=== PATIENT | female | born 1965 | race Caucasian/White ===

== ENCOUNTER → 2018-01-17 16:17 | Outpatient (CLI) | payer OTHER, SELFPAY ==
[2018-01-17 16:56] LABS: Add Manual Diff / Slide Review NO; Basophils Percent Auto 0.7 % (0-2); Hematocrit 38.7 % (36-46); Mean Corpuscular HGB Conc 33.5 % (30-36); Mean Corpuscular Hemoglobin 30.6 PG (26-34); Mean Corpuscular Volume 91.4 fL (80-100); Monocytes Percent Auto 7.2 % (3-14); Neutrophils Absolute Auto 3400 /uL (3000-5900); Neutrophils Percent Auto 50.1 % (50-75); Platelet Count 277 X10^3/uL (150-400); Red Blood Cell Count 4.24 X10^6/uL (4.0-5.2); Red Cell Distribution Width 14.3 % (11.6-14.8); White Blood Cell Count 6.8 X10^3/uL (4.5-11.0)
[2018-01-17 17:02] LABS: Alanine Aminotransferase 35 IU/L (9-52); Albumin 4.4 g/dL (3.5-5.0); Albumin Globulin Ratio 1.4 (1.0-2.8); Alkaline Phosphatase 97 U/L (38-126); Aspartate Aminotransferase 37 IU/L (14-36); Bilirubin Total 0.4 mg/dL (0.2-1.3); Blood Urea Nitrogen 12 mg/dL (7-17); Calcium 9.8 mg/dL (8.4-10.2); Carbon Dioxide 32 mmol/L (22-32); Chloride 101 mmol/L (98-107); Cholesterol 164 mg/dL (140-199); Estimated Glomerular Filt Rate > 60.0 mL/min (>60); Globulin 3.1 g/dL (1.7-4.1); Glucose 114 mg/dL (70-100); HDL Cholesterol 73 mg/dL (40-60); HEMOLYSIS < 15 (0-50); LDL Cholesterol Calculated 76 mg/dL (<100); Potassium 4.4 mmol/L (3.4-5.1); Sodium 144 mmol/L (137-145); Total Protein 7.5 g/dL (6.3-8.2); Triglycerides 75 mg/dL (35-150)
--- NOTE | 2018-01-17 17:47 | DI.RAD.S_ITS ---
PROCEDURE: XR CHEST 2V INDICATIONS: 52 year-old female with shortness of breath since pneumonia in November. TECHNIQUE: 2 views of the chest were acquired. COMPARISON: [facility], , CHEST 2 VIEW, 12/13/2017, 16:13. [facility], CR, CHEST 2 VIEW, 12/01/2017, 16:59. [facility], CR, XR CHEST 2 VIEWS, 11/26/2017, 16:10. FINDINGS: Surgical changes and devices: Cholecystectomy clips are again noted, as well as epigastric abdominal surgical clips. Lungs and pleura: No pleural effusions or pneumothorax. Lungs are clear. Mediastinum: Mediastinal contours are normal. Heart size is normal. Bones and chest wall: No suspicious bony abnormalities. Soft tissues appear unremarkable. IMPRESSION: No acute cardiopulmonary disease. Dictated by: Hong Ortega M.D. on 01/18/2018 at 8:21 Approved by: Hong Ortega M.D. on 01/18/2018 at 8:22
[2018-01-17 17:54] LABS: Hemoglobin A1C% w Est Avg Glu 6.1 % (4.0-6.0)
[2018-01-17 19:11] LABS: Creatinine Urine Random 29.7 mg/dL
[2018-01-17 19:19] LABS: Microalbumi Creatinin Ratio Ur 20.2 ug/mg CR (<30); Microalbumin Urine Random < 0.6 mg/dL (0-1.6)
== END ==
PROVIDERS: Family Provider Family Medicine; PCP Family Medicine; Visit Provider Nurse Practitioner Family
DX: E78.2 Mixed hyperlipidemia (principal); R06.02 Shortness of breath; J45.909 Unspecified asthma, uncomplicated
CPT/HCPCS: 36415; 71046; 80053; 80061; 82043; 82570; 83036; 85025

== ENCOUNTER → 2018-02-01 13:37 | Outpatient (CLI) | payer OTHER, SELFPAY ==
--- NOTE | 2018-02-06 09:19 | PM.PFT.1 ---
Pulmonary Function Test Referral & Results Date Patient Seen: 02/01/18 Requesting provider: Morales Delvalle Indication: Shortness of breath Results: The spirometry demonstrates an FVC of 2.79 L which is 80% of predicted. The FEV1 was measured at 2.43 L which is 89% of predicted. The FEV1/FVC ratio was 87 which is 110% of predicted. Following the administration of bronchodilator there was no appreciable change. Lung volumes show an SVC of 2.80 L which is 87% of predicted. The diffusing capacity was measured at 30.95 which is 127% of predicted. The maximum voluntary ventilation was reduced slightly. Interpretation: This study demonstrates probably normal pulmonary function. There was a slight reduction FEV1 but shape of flow volume loop would argue against being any active obstructive lung disease. I would interpret this as normal pulmonary function.
== END ==
PROVIDERS: Family Provider Family Medicine; PCP Family Medicine; Visit Provider Family Medicine
DX: R06.02 Shortness of breath (principal)
CPT/HCPCS: 94010; 94060; 94726; 94729

== ENCOUNTER → 2018-04-25 14:43 | Outpatient (CLI) | payer OTHER, SELFPAY ==
--- NOTE | 2018-04-25 | DI.MG.S_ITS ---
BILATERAL DIGITAL DIAGNOSTIC MAMMOGRAM 3D/2D: 04/25/2018 CLINICAL: Bilateral breast masses. Comparison is made to exams dated: 08/23/2016 mammogram, 12/09/2010 mammogram, and 05/22/2003 mammogram - [facility]. There are scattered fibroglandular elements in both breasts. There are scattered fine coarse dystrophic punctate calcifications in the right breast central to the nipple anterior depth. This correlates with surgery. There is architectural distortion and a post surgical scar associated with the calcifications. There also is a benign oval fat containing fat necrosis with an indistinct margin and dystrophic punctate calcifications in the right breast at 6 o'clock middle depth. This correlates as palpated. There is a post surgical scar associated with the fat necrosis. There are clustered fine calcifications in the left breast anterior depth inferior region seen on the mediolateral oblique view only. There also is irregular architectural distortion with an indistinct margin and scattered fine punctate calcifications in the left breast at 6 o'clock middle depth. No other significant masses or calcifications are seen in either breast. IMPRESSION: INCOMPLETE: NEEDS ADDITIONAL IMAGING EVALUATION The scattered fine coarse dystrophic punctate calcifications in the right breast central to the nipple anterior depth are consistent with fat necrosis and are benign. The clustered fine calcifications in the left breast anterior depth inferior region seen on the mediolateral oblique view only likely represent fat necrosis and are probably benign. The irregular architectural distortion in the left breast at 6 o'clock middle depth is consistent with fat necrosis or a previous surgery and is benign. This exam was interpreted at Station ID: [id number]. NOTE: For mammograms, a report in lay terms will be sent to the patient. Approximately 15% of breast malignancies will not be visualized mammographically. In the management of a palpable breast mass, a negative mammogram must not discourage biopsy of a clinically suspicious lesion. Electronically Signed By: Danny joe/juan:04/25/2018 16:21:28 letter sent: Need Ultrasound ACR BI-RADS Category 0: Incomplete 3340F
--- NOTE | 2018-04-25 | DI.US.S_ITS ---
ULTRASOUND OF RIGHT BREAST: 04/25/2018 CLINICAL: Patient returns for additional imaging over a suspected mass in the right breast. Comparison is made to exams dated: 04/25/2018 mammogram - [facility] and 08/23/2016 mammogram - [facility]. Color flow and real-time ultrasound of the right breast were performed on the areas of interest. There is a 1.1 cm x 0.6 cm x 0.8 cm oval mass with an indistinct margin in the right breast at 6 o'clock in the retroareolar region. This oval mass is hypoechoic. This correlates as palpated. Color flow imaging demonstrates that there is no vascularity present. There also is a 0.6 cm x 0.5 cm x 0.5 cm round mass with a circumscribed margin in the right breast at 5 o'clock posterior depth. This round mass is hypoechoic with internal echoes. This correlates as palpated. Color flow imaging demonstrates that there is no vascularity present. Additionally, there is a 0.9 cm x 0.5 cm x 0.9 cm oval mass with a circumscribed margin in the right breast at 6 o'clock posterior depth. This oval mass is hypoechoic with internal echoes. This correlates with mammography findings. Color flow imaging demonstrates that there is no vascularity present. IMPRESSION: PROBABLY BENIGN - FOLLOW-UP RECOMMENDED The 1.1 cm x 0.6 cm x 0.8 cm oval mass in the right breast at 6 o'clock in the retroareolar region likely represents fat necrosis and is probably benign. A follow-up ultrasound in 6 months is recommended. The 0.6 cm x 0.5 cm x 0.5 cm round mass in the right breast at 5 o'clock posterior depth likely represents fat necrosis and is probably benign. A follow-up ultrasound in 6 months is recommended. The 0.9 cm x 0.5 cm x 0.9 cm oval mass in the right breast at 6 o'clock posterior depth is probably benign. A follow-up ultrasound in 6 months is recommended. There is no abnormality seen in the right breast to correspond with the palpable abnormality at 2 o'clock, however, clinical followup is recommended. A follow-up mammogram and an ultrasound in 6 months is recommended to demonstrate stability. This exam was interpreted at Station ID: [id number]. Electronically Signed By: Danny joe/juan:04/25/2018 18:25:02 letter sent: Followup Recommended Ultrasound BI-RADS: 3 Probably benign
--- NOTE | 2018-04-25 14:09 | DI.US.S_ITS ---
ULTRASOUND OF LEFT BREAST: 04/25/2018 CLINICAL: Palpable left breast lump. Comparison is made to exams dated: 04/25/2018 mammogram - [facility], 08/23/2016 mammogram, and 12/09/2010 mammogram - [facility]. Real-time ultrasound of the left breast was performed on the area of interest. IMPRESSION: NEGATIVE There is no sonographic evidence of malignancy. There is no abnormality seen in the left breast to correspond with the palpable abnormality at 6 o'clock, however, clinical followup is recommended. A 1 year screening mammogram is recommended. Electronically Signed By: Danny joe/juan:04/30/2018 11:30:35 letter sent: Clinical Evaluation Ultrasound BI-RADS: 1 Negative
== END ==
PROVIDERS: PCP Family Medicine; Visit Provider Family Medicine
DX: R92.8 Other abnormal and inconclusive findings on diagnostic imaging of breast (principal); N64.1 Fat necrosis of breast; N63.14 Unspecified lump in the right breast, lower inner quadrant; N63.10 Unspecified lump in the right breast, unspecified quadrant
CPT/HCPCS: 76642; 77066; G0279

== ENCOUNTER → 2018-09-18 15:28 | Outpatient (CLI) | payer OTHER, SELFPAY ==
--- NOTE | 2018-09-18 15:30 | DI.MRI.S_ITS ---
PROCEDURE: MR HEAD/BRAIN WO CON INDICATIONS: mem imp TECHNIQUE: Noncontrast axial T1 spin echo, axial T2 fast spin echo, sagittal and axial FLAIR, coronal T2 fast spin echo, axial gradient echo, axial diffusion and ADC through the brain. COMPARISON: None. FINDINGS: Image quality: Excellent. CSF Spaces: Basal cisterns are patent. There is a trivial arachnoid cyst seen involving the anterior left middle cranial fossa, as on series 8 image 9. Ventricles are normal in size and shape. Brain: No intracranial masses or hemorrhage. Mxa/white matter interface is normal. Brainstem appears normal. Diffusion-weighted images demonstrate no acute ischemic insult. No chronic ischemic insults. Normal intravascular flow voids are present. Skull and face: Calvarium has normal marrow signal. Orbits appear normal. Note is made of bilateral lens replacements. Sinuses: Sinuses and mastoids are clear. IMPRESSION: No significant abnormality is seen. Dictated by: Moises Jarquin M.D. on 09/18/2018 at 15:56 Approved by: Moises Jarquin M.D. on 09/18/2018 at 15:57
== END ==
PROVIDERS: PCP Family Medicine; Visit Provider Family Medicine
DX: R41.3 Other amnesia (principal)
CPT/HCPCS: 70551

== ENCOUNTER → 2019-02-05 15:06 | Outpatient (CLI) | payer OTHER, SELFPAY | PROVIDERS: PCP Family Medicine; Visit Provider Physician Assistant | DX: N39.0 Urinary tract infection, site not specified (principal) | CPT/HCPCS: 87077; 87086; 87186 ==

== ENCOUNTER → 2019-02-17 10:24 | Outpatient (CLI) | payer OTHER, SELFPAY ==
--- NOTE | 2019-02-17 10:26 | DI.US.S_ITS ---
PROCEDURE: US PELVIC COMPLETE INDICATIONS: PELVIC PAIN TECHNIQUE: Real-time scanning was performed of the pelvic organs, with image documentation. Additional endovaginal scanning was necessary due to incomplete visualization of the adnexal and endometrial structures by transabdominal scanning. COMPARISON: None. FINDINGS: Transabdominal scanning: Limited scanning through the kidneys shows no hydronephrosis. No pathologic free abdominal or pelvic fluid. Endovaginal scanning: Uterus: Uterus has been removed. Vaginal cuff is within normal limits. Ovaries: Left ovary is not visualized. Adnexal regions are unremarkable. Right ovary measures 32 x 18 x 32 mm. It is unremarkable. IMPRESSION: Unremarkable exam. Dictated by: Radha Freedman M.D. on 02/17/2019 at 13:36 Approved by: Radha Freedman M.D. on 02/17/2019 at 13:38
== END ==
PROVIDERS: PCP Family Medicine; Visit Provider Family Medicine
DX: R10.2 Pelvic and perineal pain (principal); Z78.0 Asymptomatic menopausal state
CPT/HCPCS: 36415; 76830; 76856; 83001

== ENCOUNTER → 2019-02-17 13:00 | Outpatient (CLI) | payer OTHER, SELFPAY | PROVIDERS: Family Provider Family Medicine; PCP Family Medicine | DX: Z78.0 Asymptomatic menopausal state (principal) | CPT/HCPCS: 36415; 83001 ==

== ENCOUNTER → 2019-03-04 13:57 | Outpatient (CLI) | payer OTHER, SELFPAY ==
--- NOTE | 2019-03-04 13:58 | DI.US.S_ITS ---
ULTRASOUND OF RIGHT BREAST: 03/04/2019 CLINICAL: Patient returns today to evaluate densities in the right breast. Comparison is made to exams dated: 04/25/2018 ultrasound, 04/25/2018 mammogram [facility], 08/23/2016 mammogram, 12/09/2010 mammogram, 05/22/2003 mammogram, and 05/22/2003 [facility]. Color flow and real-time ultrasound of the right breast were performed. Max scale images of the real-time examination were reviewed. There is 0.3 cm x 0.6 cm x 0.4 cm oval mass with an indistinct margin in the right breast at 6 o'clock in the retroareolar region 3 cm from the nipple. This oval mass is hypoechoic. This abnormality is not significantly changed. Color flow imaging demonstrates that there is no vascularity present. There also is 0.4 cm x 0.3 cm x 0.5 cm round mass with a circumscribed margin in the right breast at 5 o'clock posterior depth 10 cm from the nipple. This round mass is hypoechoic with internal echoes. This abnormality is not significantly changed. Color flow imaging demonstrates that there is no vascularity present. Additionally, there is 0.8 cm x 0.4 cm x 0.9 cm oval mass with a circumscribed margin in the right breast at 6 o'clock posterior depth 10 cm from the nipple. This oval mass is hypoechoic with internal echoes. This abnormality is not significantly changed and correlates with mammography findings. Color flow imaging demonstrates that there is no vascularity present. IMPRESSION: PROBABLY BENIGN The 1.3 cm x 0.6 cm x 0.4 cm oval mass in the right breast at 6 o'clock in the retroareolar region likely represents fat necrosis and is probably benign. The 0.4 cm x 0.3 cm x 0.5 cm round mass in the right breast at 5 o'clock posterior depth likely represents fat necrosis and is probably benign. The 0.8 cm x 0.4 cm x 0.9 cm oval mass in the right breast at 6 o'clock posterior depth is probably benign. A follow-up ultrasound in 6 months is recommended. A follow-up bilateral mammogram and a right breast ultrasound in 12 months is recommended to document two years of stability. This exam was interpreted at Station ID: [id number]. Electronically Signed By: Cornel Gillis M.D. aty/:03/05/2019 06:13:04 letter sent: Followup Recommended Ultrasound BI-RADS: 3 Probably benign
--- NOTE | 2019-03-04 13:58 | DI.MG.S_ITS ---
BILATERAL DIGITAL DIAGNOSTIC MAMMOGRAM 3D/2D SHORT-TERM FOLLOW-UP: 03/04/2019 CLINICAL: Short term follow up for bilateral breasts. Comparison is made to exams dated: 04/25/2018 ultrasound, 04/25/2018 ultrasound, and 04/25/2018 mammogram - [facility]. There are scattered fibroglandular elements in both breasts. There is a benign oval fat containing fat necrosis with dystrophic calcifications in the right breast at 6 o'clock middle depth. This is not significantly changed. There is a post-surgical scar associated with the fat necrosis. There are a grouped coarse calcifications in the left breast anterior depth inferior region seen on the mediolateral oblique view only. These are not significantly changed. No other significant masses or calcifications are seen in either breast. IMPRESSION: INCOMPLETE: NEEDS ADDITIONAL IMAGING EVALUATION The grouped coarse calcifications in the left breast anterior depth inferior region seen on the mediolateral oblique view only likely represent fat necrosis and are probably benign. Further evaluation of previously imaged probably benign masses in the right breast by sonogram is recommended and will be scheduled to immediately follow this exam. This exam was interpreted at Station ID: [id number]. NOTE: For mammograms, a report in lay terms will be sent to the patient. Approximately 15% of breast malignancies will not be visualized mammographically. In the management of a palpable breast mass, a negative mammogram must not discourage biopsy of a clinically suspicious lesion. Electronically Signed By: Cornel Gillis M.D. aty/:03/04/2019 15:48:55 ACR BI-RADS Category 0: Incomplete 3340F
== END ==
PROVIDERS: Family Provider Family Medicine; PCP Family Medicine; Visit Provider Family Medicine
DX: R92.8 Other abnormal and inconclusive findings on diagnostic imaging of breast (principal); R92.1 Mammographic calcification found on diagnostic imaging of breast; N63.10 Unspecified lump in the right breast, unspecified quadrant
CPT/HCPCS: 76642; 77066; G0279

== ENCOUNTER → 2019-04-08 13:02 | Outpatient (CLI) | payer OTHER, SELFPAY ==
--- NOTE | 2019-04-08 13:04 | DI.MRI.S_ITS ---
PROCEDURE: MR ANKLE LT WO CON INDICATIONS: Pain IN LEFT ANKLE TECHNIQUE: Noncontrast sagittal T1 spin echo and T2 fast spin echo with fat saturation, axial proton density fast spin echo and T2 fast spin echo with fat saturation, coronal T1 spin echo and T2 fast spin echo with fat saturation through the ankle/hindfoot. COMPARISON: [facility], MR, MR FOOT LT WO CON, 04/08/2019, 13:46. FINDINGS: Image quality: Diagnostic. Bones and joints: No acute fracture, dislocation, or suspicious osseous lesion is identified involving the osseous structures of the midfoot or hindfoot. Moderate focal marrow edema is evident involving the calcaneus at the subtalar joint, which is felt to be related to a defect of the overlying hyaline articular cartilage. The ankle mortise is well-maintained. There are no osteochondral defects evident involving the tibial plafond to the talar dome. However, small defect of the hyaline articular cartilage along the anterior margin of the central tibial plateau is present with an area of minimal focal marrow edema identified. No osteochondral fragments are appreciated. No significant joint effusions are identified. There is a small Achilles spur. Medial structures: The deltoid and spring ligaments are intact. There is slight increased signal involving the talar attachment of the deltoid ligament. The tibialis posterior, flexor digitorum longus, and flexor hallucis longus tendons appear intact without significant tendinopathy. A small amount of fluid is contained within their corresponding tendon sheaths. The posterior tibial nerve through the region of the tarsal tunnel appears to be within normal limits. Lateral structures: The anterior and posterior distal tibiofibular ligaments are intact. The anterior and posterior talofibular ligaments are intact. The calcaneofibular ligament is also intact. There is fluid contained within the peroneus brevis and peroneus longus tendon sheaths. Otherwise, the peroneus brevis tendon is unremarkable. The peroneus longus tendon demonstrates focal increased signal along the periphery of the calcaneus and at the insertion of the tendon. There may be areas of intrasubstance partial thickness tearing. Normal signal is seen within the sinus tarsi. Anterior structures: The tibialis anterior, extensor hallucis longus, and extensor digitorum longus tendons appear intact. Posterior and plantar structures: Achilles tendon is intact. Medial and lateral bands of the plantar fascia are of normal thickness. No abductor digiti quinti muscle atrophy to suggest Sarabia neuropathy. IMPRESSION: 1. Moderate peroneus longus tendinopathy with possible areas of intrasubstance partial thickness tearing. 2. Mild tenosynovitis involving the peroneus brevis and peroneus longus tendons. 3. Questionable deltoid ligament sprain. 4. Degenerative changes of the tibiotalar and middle subtalar joints. Dictated by: Anthony Mason M.D. on 04/08/2019 at 13:52 Approved by: Anthony Mason M.D. on 04/08/2019 at 14:00
--- NOTE | 2019-04-08 13:04 | DI.MRI.S_ITS ---
PROCEDURE: MRFOOT LT WO CON INDICATIONS: Pain IN LEFT FOOT TECHNIQUE: Noncontrast sagittal T1 spin echo and T2 fast spin echo with fat saturation, long-axis T1 spin echo and T2 fast spin echo with fat saturation, short-axis T1 spin echo and T2 fast spin echo with fat saturation through the forefoot. COMPARISON: [facility], MR, MR ANKLE LT WO CON, 04/08/2019, 14:01. FINDINGS: Image quality: Diagnostic. Bones and joints: No acute fracture, dislocation, or suspicious osseous lesion is evident involving the left midfoot and forefoot. No significant degenerative changes of the joints of the midfoot and forefoot are evident. No joint effusions are appreciated. Soft tissues: Mild soft tissue edema is evident about the forefoot, particularly within the region of the toes. No drainable or loculated fluid collection is evident. Mild increased signal at the insertion of the peroneus longus tendon is identified. Otherwise, the flexor and extensor tendons of the forefoot are within normal limits. Small amount of fluid may be present within the intermetatarsal region between the 1st and 2nd and 3rd and 4th metatarsal heads. No significant atrophy is appreciated involving the intrinsic muscles of the foot. The Lisfranc ligament is somewhat heterogeneous and not well seen. IMPRESSION: 1. Mild distal peroneus longus tendinopathy. 2. Minimal fluid between the 1st/2nd and 3rd/4th metatarsal head could potentially represent intermetatarsal bursitis. 3. No fractures. Dictated by: Anthony Mason M.D. on 04/08/2019 at 13:49 Approved by: Anthony Mason M.D. on 04/08/2019 at 13:52
== END ==
PROVIDERS: PCP Family Medicine; Visit Provider Family Medicine
DX: M79.672 Pain in left foot (principal); M67.90 Unspecified disorder of synovium and tendon, unspecified site; M25.572 Pain in left ankle and joints of left foot; M65.9 Synovitis and tenosynovitis, unspecified
CPT/HCPCS: 73718; 73721

== ENCOUNTER 2019-05-01 12:39 | Outpatient (CLI) | payer OTHER, SELFPAY | END 2019-08-07 10:13 | disposition home or self-care (01) | LOC: PHYS 12:39 | PROVIDERS: PCP Family Medicine; Visit Provider Family Medicine | DX: G56.93 Unspecified mononeuropathy of bilateral upper limbs (principal) | CPT/HCPCS: 95885; 95886; 95912 ==

== ENCOUNTER 2019-06-04 09:59 | Day surgery (SDC) | payer OTHER, SELFPAY ==
[2019-06-02 12:19] VITALS: BMI 30.6
[2019-06-04] VITALS (9 sets, daily range): BP systolic 101–130; BP diastolic 55–70; PULSE 74–88; RESP 8–16; TEMP 36.4–36.7; O2SAT 96–100; BMI 29.2
--- NOTE | 2019-06-04 12:31 | PM.PREOP ---
Pre-operative Note Interval Note History & Physical reviewed/Exam performed by Physician: Yes Changes to H&P: No
[2019-06-04] MEDS: CEFAZOLIN 2 GM/100 ML FROZ.PIGGY IV (13:22)
--- NOTE | 2019-06-04 14:13 | SUR.OPER ---
Supine on padded OR bed, head on pillow, arms secured on padded arm boards at <90 degrees abduction, safety belt at thigh, tape over blanket over non-operative leg. Left (surgical leg) on padded well leg sharma at the knee. Foot secured in ankle distractor and under control of surgeon
[2019-06-04] MEDS: BUPIVACAINE 0.25% W/ EPI 30 ML VIAL INJ (14:30)
--- NOTE | 2019-06-04 15:22 | PM.OP.1 ---
Operative Date/Time/Diagnoses Date of procedure: 06/04/19 Time of procedure: 14:15 Pre-op diagnosis: Left peroneal tendinosis in 67.8 Impingement left ankle m25.872 Post-op diagnosis: other (Left peroneal tendinosis, impingement left ankle, left peroneus longus tendon tear) Procedure & Clinicians Procedure: 1. Ankle arthroscopy, left limited debridement CPT code 05078 2. Repair of flexor tendon, leg primary without graft, peroneus longus tendon CPT code 82088 Same procedure as scheduled: Yes Indications: Patient is a 53-year-old female with a history of a left ankle injury and chronic pain refractory to conservative treatments. The patient has had extensive nonoperative treatment including bracing, physical therapy. She has anterior ankle impingement with soft tissue as well as severe peroneal tendinosis and tendinitis and possible tearing. The patient has been indicated for arthroscopic debridement of her anterior ankle an open exploration repair debridement of her peroneal tendons. The patient understands and agrees with the plan. The risks benefits and alternatives to the procedure were discussed with the patient in detail these include but are not limited to infection, persistent pain, inability to return to previous level of activity, wound healing problems, need for further surgery, DVT, pulmonary embolism, nerve and vessel irritation, DVT, pulmonary embolism, cardiac and pulmonary complications of general anesthesia up to including . Informed consent was signed in the office. She will use aspirin 325 mg daily for DVT prophylaxis postoperatively. Surgeon: Krys Jaquez Click Yes if Unassisted: Yes Anesthesia Type: General and Local Operative Notes Findings: Ankle arthroscopy. Standard diagnostic arthroscopy performed. No osteochondral lesions. Cartilage intact talus and tibia. Anterior laterally there is inferior accessory limb of the ATFL consistent with [place]'s ligament. There is mild synovitis in this area. This is debrided with a shaver. No loose bodies noted. Medial and lateral gutters clear. Normal syndesmotic space unable to pass 3 mm probe through. Open exploration of the peroneal tendons. There is severe tendonitis and adhesive synovium around both peroneal tendons upon opening the sheath. There is also a low lying peroneus brevis muscle belly that was debrided. There were no davion tears of the peroneus brevis. There were small areas of tendinosis that were trimmed. Additionally the peroneus longus was inspected and this did have backside longitudinal tearing near the lateral malleolus. This was trimmed and then tubularized with a 4 0 Maxon. Closure Type: primary Specimen(s): none sent Estimated Blood Loss (mL): 5 Blood products transfused: none Tourniquet time (min): 50 Procedure in detail: Patient was seen in the preoperative area the surgery site was marked in the informed consent confirmed. The patient was then brought back to the operating room by the anesthesia team placed supine on operative table with general anesthesia administered. A well-padded thigh tourniquet was placed and all bony prominences were padded. An SCD was placed on the contralateral lower extremity. The left leg was placed in the well sharma for the arthroscopy set up. The left lower extremity was then prepped and draped in the standard sterile fashion. Formal time-out procedure was performed confirming the patient's side and site of surgery administration of appropriate antibiotics. All were in agreement. An Esmarch was used for exsanguination the tourniquet was raised to 250 mm of mercury and stayed there for 50 minutes. Bony landmarks were marked on the ankle the portal sites established. The joint was insufflated with 15 cc of saline and on face of distractor was set up. Sharp incision through the skin was completed then blunt dissection with a hemostat into the joint to establish the anterior medial portal site. Scope was then placed and confirmed intra-articular placement. Next the a anterior lateral portal was established with care to palpate and avoid the superficial peroneal nerve branch portal placement. Needle was used to localize the trajectory of the portal and again the tissue was in skin was incised with the scalpel and blunt dissection into the joint with a hemostatic. Probe was then introduced. Diagnostic arthroscopy then took place. There is a mild amount of synovitis anteriorly, primarily at the anterior lateral joint where there was a low-lying limb of the AI TFL consistent with the [place]'s ligament. There were no visualized osteochondral defects and the cartilage on the tibia and talus were otherwise in excellent condition. Diagnostic arthroscopy was used to confirm cartilage integrity of the medial and lateral shoulders as well as the dome. Normal syndesmotic space was noted and a 3 mm probe was not able to pass through this. Once the diagnostic arthroscopy was completed [place]'s ligament was isolated and the shaver was introduced to the anterior lateral portal to debride this arthroscopically. Once this was debrided satisfactorily the arthroscopy was ended and the instruments removed from the joint and the portals closed. At this point time attention was turned to the open procedure. The leg was removed from the well leg sharma and placed supine on the table. Attention was turned perineal tendons. Approximately 10 cm curved incision was taken just posterior to the fibula from proximal to distal this was taken through the skin subcutaneous tissue. Flaps were developed. Peroneal sheath was then opened leaving tissue for repair on either side. This was opened over a [place] elevator distally in the area of the retinaculum. The peroneal tendons were exposed there was significant tenosynovitis along the tendons and low-lying muscle belly for the peroneus brevis was identified. With mild tendinosis of the peroneus brevis tendon but no focal tearing. The most the tendinotic areas were carefully trimmed. Peroneus longus was then inspected there was a longitudinal tear at the level of the lateral malleolus on the backside additionally there was rough hard tendinotic tissue in this area. This was carefully debrided and then tubularized with a 4 0 Maxon. More than 50% of the tendon remained so this was repaired and not tenodesed. This decompressed the peroneal groove well. Wound was irrigated and the retinaculum was repaired with 2 O Maxon suture. The ankle was taken through a range of motion and the peroneal tendons were noted to glide slide with smoothly through the groove and there is no evidence of dislocation or subluxation. Subcutaneous tissue was closed with 4 0 Monocryl and 3 0 and nylon in the skin. Tourniquet was released before wound closure and hemostasis was obtained. Sterile dressings of Xeroform gauze Webril and a U slab splint were placed. The patient was woken from anesthesia and taken to PACU in good condition. There no immediate complications from this procedure. Complications: none Post-operative Condition: stable Disposition: PACU Plan for aftercare: Nonweightbearing and splint. The patient will follow up in 1 week postop that point she will go into a boot with remain nonweightbearing. She will follow up in 3 weeks time which time sutures will come out the patient will initiate progressive weight-bearing and physical therapy. Patient would like to do physical therapy in [place]. She will have Percocet for pain. She will take aspirin 325 mg daily for DVT prophylaxis while she is nonweightbearing.
[2019-06-04] MEDS: MEPERIDINE 50 MG/ML INJ 25 MG IV (15:36)
--- NOTE | 2019-06-04 15:54 | SUR.PHASEI ---
Gave pain medication for c/o 03/29 pain. Increased 02 to 3 L, for 02 sats 0f 90%. Patient able to wiggle toes on left foot and cap refill < 2 seconds.
[2019-06-04] MEDS: HYDROCODONE/ACET 5/325 TABLET 1 TAB PO ×2 (16:11→16:30)
--- NOTE | 2019-06-04 17:00 | SUR.PHASEII ---
at bedside. Prescription refilled by . Patient rates pain 4/10.
== END 2019-06-04 17:20 | disposition home or self-care (01) ==
PROVIDERS: Family Provider Family Medicine; PCP Family Medicine; Visit Provider Orthopaedic Surgery Foot and Ankle Surgery
PROC: (CPT 27659; principal; 2019-06-04 12:15)
DX: M67.88 Other specified disorders of synovium and tendon, other site (principal); M25.872 Other specified joint disorders, left ankle and foot; S86.312D Strain of muscle(s) and tendon(s) of peroneal muscle group at lower leg level, left leg, subsequent encounter; Q66.70 Congenital pes cavus, unspecified foot
CPT/HCPCS: 27659; 29897; J0690; J1170; J2175; J2405; J2704; J3010

== ENCOUNTER 2019-08-27 14:30 | Outpatient (RCR) | payer OTHER, SELFPAY ==
--- NOTE | 2019-07-11 14:19 | PT.OIE ---
Current Diagnoses Other specified joint disorders, left ankle and foot (07/11/19) Other specified disorders of synovium and tendon, other site (07/11/19) Past Medical History (Last Updated 06/04/19 @ 11:03 by Whitney Jhaveri, RN) Abnormal Pap smear of cervix (Resolved ~1979) Anemia (Chronic ~2011) Ankle pain (Chronic ~2009) Asthma (Chronic ~1989) Cataract (Chronic ~2009) Chickenpox (Resolved ~1972) Chronic back pain (Chronic ~2011) Constipation (Acute) Diabetes mellitus (Chronic ~2005) DJD (degenerative joint disease) (Chronic ~2013) Excessive daytime sleepiness (Chronic) Foot pain (Chronic ~2009) History of frequent headaches (Chronic ~1963) History of pneumonia (Acute) History of UTI (Acute) Hyperlipidemia (Acute) Impaired vision (Acute) Insomnia, persistent (Chronic) Kidney stone (Acute) Obstructive sleep apnea of adult (Chronic) Osteoarthritis (Chronic ~2013) Peripheral neuropathy (Acute) Recurrent sinusitis (Chronic ~1979) Seasonal allergies (Chronic ~1989) Shortness of breath (Acute) Sleep apnea (Chronic ~2004) Urinary frequency (Acute) Past Surgical History (Last Updated 06/04/19 @ 11:03 by Whitney Jhaveri, LIS) Anesthesia (Inactive) H/O reduction mammoplasty (Chronic) H/O removal of cyst (Resolved ~2014) History of bowel resection (~2012) History of gastric bypass (~2008) History of intestinal surgery (Acute) History of shoulder surgery (Resolved ~2011) Pilonidal cyst (Resolved ~1979) Status post cholecystectomy (~1996) Status post hysterectomy (~1991) Visit Care Team Role Provider Type Morales Delvalle MD Primary Care Provider Physician Specialty: Family Practice Address: [address] [place] [address], [id number] Email: [email or web address] Krys Jaquez MD Attending Provider Physician Specialty: Orthopedic Surgery Address: [address] [place] [address], [id number] Email: [email or web address] [facility] Initial Evaluation PT-OP-A Visit Information Start: 07/11/19 07:33 Freq: Status: Active Protocol: Document 07/11/19 08:15 AMB (Rec: 07/13/19 13:36 AMB [email or web address]) Out-Patient Physical Therapy Visit Information Visit Information Visit Type Initial Evaluation Visit Start Time 08:15 Visit Stop Time 09:00 Total Visit Minutes 45 Visit Number 1 PT-OP-B Current Condition Start: 07/11/19 07:33 Freq: Status: Active Protocol: Document 07/11/19 08:15 AMB (Rec: 07/13/19 14:00 AMB [email or web address]) Current Condition History of Current Condition Onset Date 06/04/19 Current Complaints Difficulty walking s/p peroneal tendon repair History of Current Condition Keila had a peroneal tendon repair on the left on 06/04/19 . She fell on her left knee while using crutches at night on day two post op while at home and at that point got a knee walker which she has been using since. Per her protocol provided by Dr. Jaquez, she is now half way though week 5 she should be weightbearing 75% of her weight while in the boot. But she has not been doing this because she has been scooting up her stairs on her bottom and using the knee walker. 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 Treatment Goals Patient/Caregiver Goals Reduce pain, walk normally Prior Functional Status Baseline Function- ADL's Independent Baseline Function- Mobility Independent Baseline Function- Other Pt fell off of a ladder years ago and tore her tendon, she has been dealing with that since Current Functional Impairments (Reported) Functional Limitations- ADL's scooting up the stairs on her butt, using a knee walker for all mobility Personal Factors Other Personal Factors That May Effect Fibromyalgia, DMII Therapy/Recovery PT-OP-C Subjective Start: 07/11/19 07:33 Freq: Status: Active Protocol: Document 07/11/19 08:15 AMB (Rec: 07/13/19 14:00 AMB [email or web address]) Patient Questionnaires Lower Extremity Functional Scale LEFS Score 27 LEFS Impairment 60 to 79% Impaired (Score 17- 31) OP-PT Pain Assessment Location Left Ankle Pain Location Details left lateral ankle Intensity 4 Scale Used Numeric (1 - 10) PT-OP-D Balance Start: 07/11/19 07:33 Freq: Status: Active Protocol: Document 07/11/19 08:15 AMB (Rec: 07/13/19 14:06 AMB [email or web address]) OP-PT Balance Assessment Standing Balance Standing Balance Comments requires UE suppport, weightbears extensively on R LE Marquez Fall Scale Copyright Permission PT-OP-J Posture/Palpation/Skin Start: 07/11/19 07:33 Freq: Status: Active Protocol: Document 07/11/19 08:15 AMB (Rec: 07/13/19 14:06 AMB [email or web address]) Skin Assessment Edema Assessment Left Foot Edema Type Pitting Edema Degree 3+ Edema Appearance Puffy,Taut Incisional Assessment Incision Appearance/Comments Scar is scabbing over, currently tight, non-mobile. PT-OP-K Range of Motion Start: 07/11/19 07:33 Freq: Status: Active Protocol: Document 07/11/19 08:15 AMB (Rec: 07/13/19 14:06 AMB [email or web address]) Ankle and Foot Goniometric Range of Motion Ankle and Foot Left Passive Testing Position Supine Plantarflexion 40 Ankle and Foot ROM Limitations Comments missing 12 degrees of dorsiflexion with knee extended PT-OP-Q Treatments Start: 07/11/19 07:33 Freq: Status: Active Protocol: Document 07/11/19 08:15 AMB (Rec: 07/13/19 14:06 AMB [email or web address]) Gait Training Gait Activity 1 Description Ambulation with FWW Level of Assistance CGA Surface smooth Distance/Duration 20' Comments Pt ambulates with step to gait and hesitant to put weight through the boot PT-OP-T Assessment and Plan Start: 07/11/19 07:33 Freq: Status: Active Protocol: Document 07/11/19 08:15 AMB (Rec: 07/13/19 14:19 AMB [email or web address]) Physical Therapy Assessment Rehab Potential Rehabilitation Potential Fair Evaluation Complexity Number of Personal Factors/Comorbidities 1-2 Number of Body Systems Impaired 4 or More Clinical Presentation at Evaluation Evolving Impairments Impairments Balance,Edema,Functional Activities,Gait,Integument, Pain,ROM,Sensation,Strength Goals Four Impairment swelling Short Term Goal (STG) Keila will be independent with a swelling management program so that she no longer has pitting edema in her foot/ ankle. STG Duration 4 weeks Three Impairment strength Short Term Goal (STG) Keila will move through full AROM in eversion and inversion STG Duration 4 weeks Mcc Goal (LTG) Keila will be able to perform a double leg heel raise without UE support. LTG Duration 8 weeks Two Impairment gait Short Term Goal (STG) Keila will ambulate with a FWW for 100' with a step through gait pattern. STG Duration 4 weeks Computer Graphic Designer Goal (LTG) Keila will ambulate without assistive device for 5 minutes without an antalgic gait pattern. LTG Duration 8 weeks One Impairment ROM Short Term Goal (STG) Keila will improve her PROM to neutral ankle dorsiflexion. STG Duration 4 weeks Computer Graphic Designer Goal (LTG) Keila will improve her AROM to 10 degrees of ankle dorsiflexion. LTG Duration 8 weeks Assessment Summary Assessment Keila attends physical therapy having not been weightbearing at all through her boot. She has 3+ pitting edema in her foot and has not been icing or doing gentle ROM as instructed by her physician. This, unfortunately, has put her back considerably in regards to where she should be in her protocol. She has one more week to accomplish full weightbearing in her boot with no swelling, and it is very unlikely that she will meet this goal, therefore she may need more PT as her recovery time will likely be longer. She will benefit from PT for gait training, edema management, and instruction in an appropriate exercise program. Physical Therapy Plan Frequency and Duration Frequency of Treatment 2x/Week Duration of Treatment 8 weeks Plan of Care Start Date 07/11/19 Plan of Care End Date 09/05/19 Therapeutic Interventions Therapeutic Interventions Aquatic Therapy,Balance Training,Gait Training,Home Exercise Program,Joint Mobilizations,Manual Therapy, Neuromuscular Re-education, Soft Tissue Mobilization, Therapeutic Activities, Therapeutic Exercises Modalities Cold Pack/Ice Massage,Electric Stimulation,Hot Packs, Ultrasound Next Visit Focus/Plan Next Note Type Treatment Note Next Visit Plan Begin with gait training/stair training. Work on re- educating pt re: protocol. Reduce pitting edema, further instruct in HEP and progress appropriately.
--- NOTE | 2019-07-11 14:22 | PT.OPPOC ---
Current Diagnoses Other specified joint disorders, left ankle and foot (07/11/19) Other specified disorders of synovium and tendon, other site (07/11/19) Other abnormalities of gait and mobility (07/11/19) Visit Care Team Role Provider Type Morales Delvalle MD Primary Care Provider Physician Specialty: Family Practice Address: [address] [place] [address], [id number] Email: [email or web address] Krys Jaquez MD Attending Provider Physician Specialty: Orthopedic Surgery Address: [address] [place] [address], [address] Email: [email or web address] Plan Of Care PT-OP-T Assessment and Plan Start: 07/11/19 07:33 Freq: Status: Active Protocol: Document 07/11/19 08:15 AMB (Rec: 07/13/19 14:19 AMB [email or web address]) Physical Therapy Assessment Rehab Potential Rehabilitation Potential Fair Evaluation Complexity Number of Personal Factors/Comorbidities 1-2 Number of Body Systems Impaired 4 or More Clinical Presentation at Evaluation Evolving Impairments Impairments Balance,Edema,Functional Activities,Gait,Integument, Pain,ROM,Sensation,Strength Goals Four Impairment swelling Short Term Goal (STG) Keila will be independent with a swelling management program so that she no longer has pitting edema in her foot/ ankle. STG Duration 4 weeks Three Impairment strength Short Term Goal (STG) Keila will move through full AROM in eversion and inversion STG Duration 4 weeks Baker Helper Goal (LTG) Keila will be able to perform a double leg heel raise without UE support. LTG Duration 8 weeks Two Impairment gait Short Term Goal (STG) Keila will ambulate with a FWW for 100' with a step through gait pattern. STG Duration 4 weeks Baker Helper Goal (LTG) Keila will ambulate without assistive device for 5 minutes without an antalgic gait pattern. LTG Duration 8 weeks One Impairment ROM Short Term Goal (STG) Keila will improve her PROM to neutral ankle dorsiflexion. STG Duration 4 weeks Baker Helper Goal (LTG) Keila will improve her AROM to 10 degrees of ankle dorsiflexion. LTG Duration 8 weeks Assessment Summary Assessment Keila attends physical therapy having not been weightbearing at all through her boot. She has 3+ pitting edema in her foot and has not been icing or doing gentle ROM as instructed by her physician. This, unfortunately, has put her back considerably in regards to where she should be in her protocol. She has one more week to accomplish full weightbearing in her boot with no swelling, and it is very unlikely that she will meet this goal, therefore she may need more PT as her recovery time will likely be longer. She will benefit from PT for gait training, edema management, and instruction in an appropriate exercise program. Physical Therapy Plan Frequency and Duration Frequency of Treatment 2x/Week Duration of Treatment 8 weeks Plan of Care Start Date 07/11/19 Plan of Care End Date 09/05/19 Therapeutic Interventions Therapeutic Interventions Aquatic Therapy,Balance Training,Gait Training,Home Exercise Program,Joint Mobilizations,Manual Therapy, Neuromuscular Re-education, Soft Tissue Mobilization, Therapeutic Activities, Therapeutic Exercises Modalities Cold Pack/Ice Massage,Electric Stimulation,Hot Packs, Ultrasound Next Visit Focus/Plan Next Note Type Treatment Note Next Visit Plan Begin with gait training/stair training. Work on re- educating pt re: protocol. Reduce pitting edema, further instruct in HEP and progress appropriately. Plan of Care Dates Plan of Care Start Date 07/11/19 Plan of Care End Date 09/05/19
--- NOTE | 2019-07-14 13:45 | PT.OTN ---
Current Diagnoses Other specified joint disorders, left ankle and foot (07/14/19) Other specified disorders of synovium and tendon, other site (07/14/19) Other abnormalities of gait and mobility (07/14/19) Physical Therapy Treatment Note PT-OP-A Visit Information Start: 07/11/19 07:33 Freq: Status: Active Protocol: Document 07/14/19 13:45 AMB (Rec: 07/14/19 14:12 AMB [id number]) Out-Patient Physical Therapy Visit Information Visit Information Visit Type Treatment Note Visit Start Time 13:45 Visit Stop Time 14:30 Total Visit Minutes 45 Visit Number 2 PT-OP-B Current Condition Start: 07/11/19 07:33 Freq: Status: Active Protocol: Document 07/11/19 08:15 AMB (Rec: 07/13/19 14:00 AMB [email or web address]) Current Condition History of Current Condition Onset Date 06/04/19 Current Complaints Difficulty walking s/p peroneal tendon repair History of Current Condition Keila had a peroneal tendon repair on the left on 06/04/19 . She fell on her left knee while using crutches at night on day two post op while at home and at that point got a knee walker which she has been using since. Per her protocol provided by Dr. Jaquez, she is now half way though week 5 she should be weightbearing 75% of her weight while in the boot. But she has not been doing this because she has been scooting up her stairs on her bottom and using the knee walker. 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 Treatment Goals Patient/Caregiver Goals Reduce pain, walk normally Prior Functional Status Baseline Function- ADL's Independent Baseline Function- Mobility Independent Baseline Function- Other Pt fell off of a ladder years ago and tore her tendon, she has been dealing with that since Current Functional Impairments (Reported) Functional Limitations- ADL's scooting up the stairs on her butt, using a knee walker for all mobility Personal Factors Other Personal Factors That May Effect Fibromyalgia, DMII Therapy/Recovery PT-OP-C Subjective Start: 07/11/19 07:33 Freq: Status: Active Protocol: Document 07/14/19 13:45 AMB (Rec: 07/14/19 14:12 AMB [id number]) OP-PT Subjective Patient Comments Patient Comments Pt reports she has been using the FWW upstairs. She has been doing her exercises and that is going well doing 15 reps at a time. PT-OP-D Balance Start: 07/11/19 07:33 Freq: Status: Active Protocol: Document 07/11/19 08:15 AMB (Rec: 07/13/19 14:06 AMB [email or web address]) OP-PT Balance Assessment Standing Balance Standing Balance Comments requires UE suppport, weightbears extensively on R LE Marquez Fall Scale Copyright Permission PT-OP-J Posture/Palpation/Skin Start: 07/11/19 07:33 Freq: Status: Active Protocol: Document 07/11/19 08:15 AMB (Rec: 07/13/19 14:06 AMB [email or web address]) Skin Assessment Edema Assessment Left Foot Edema Type Pitting Edema Degree 3+ Edema Appearance Puffy,Taut Incisional Assessment Incision Appearance/Comments Scar is scabbing over, currently tight, non-mobile. PT-OP-K Range of Motion Start: 07/11/19 07:33 Freq: Status: Active Protocol: Document 07/11/19 08:15 AMB (Rec: 07/13/19 14:06 AMB [email or web address]) Ankle and Foot Goniometric Range of Motion Ankle and Foot Left Passive Testing Position Supine Plantarflexion 40 Ankle and Foot ROM Limitations Comments missing 12 degrees of dorsiflexion with knee extended PT-OP-Q Treatments Start: 07/11/19 07:33 Freq: Status: Active Protocol: Document 07/14/19 13:45 AMB (Rec: 07/15/19 10:36 AMB [email or web address]) Cardio Equipment Recumbent Bicycle Duration (Minutes) 5 Resistance 6 Therapeutic Exercises Supine Exercises 2 Supine Exercise Name toe curls Reps/Minutes 10 1 Supine Exercise Name ankle PF/DF Resistance AROM Reps/Minutes 10 Standing Exercises 1 Standing Exercise Name standing on scale Comments practice with 50% and 75% weightbearing Gait Training Gait Activity 1 Description Ambulation with FWW Level of Assistance SBA Surface smooth Distance/Duration 100'x2 Comments Pt ambulates with step to gait and hesitant to put weight through the boot, with verbal cues she did better with stepping through, but is still not putting 75% of her weight through the leg with ambulation. Manual Therapy Treatment Other Other Manual Treatments edema massage , gentle scar massage PT-OP-R Modalities Start: 07/11/19 07:33 Freq: Status: Active Protocol: Document 07/14/19 13:45 AMB (Rec: 07/15/19 10:37 AMB [email or web address]) Hot Pack/Cold Pack Treatment cryocuff Location ankle Patient Position Hooklying Treatment Duration (minutes) 10 Patient Tolerance Good PT-OP-T Assessment and Plan Start: 07/11/19 07:33 Freq: Status: Active Protocol: Document 07/14/19 13:45 AMB (Rec: 07/14/19 14:12 AMB [email or web address]) Physical Therapy Assessment Assessment Summary Assessment Pt continuing to exhibit step to gait, but encouraged that she is weightbearing through the foot. Physical Therapy Plan Next Visit Focus/Plan Next Note Type Treatment Note Next Visit Plan Begin with gait training/stair training. Work on re- educating pt re: protocol. Reduce pitting edema, further instruct in HEP and progress appropriately.
--- NOTE | 2019-07-21 16:25 | PT.OTN ---
Current Diagnoses Other specified joint disorders, left ankle and foot (07/21/19) Other specified disorders of synovium and tendon, other site (07/21/19) Other abnormalities of gait and mobility (07/21/19) Physical Therapy Treatment Note PT-OP-A Visit Information Start: 07/11/19 07:33 Freq: Status: Active Protocol: Document 07/21/19 14:30 AMB (Rec: 07/21/19 15:52 AMB [email or web address]) Out-Patient Physical Therapy Visit Information Visit Information Visit Type Treatment Note Visit Start Time 14:30 Visit Stop Time 15:15 Total Visit Minutes 45 Visit Number 3 PT-OP-B Current Condition Start: 07/11/19 07:33 Freq: Status: Active Protocol: Document 07/11/19 08:15 AMB (Rec: 07/13/19 14:00 AMB [email or web address]) Current Condition History of Current Condition Onset Date 06/04/19 Current Complaints Difficulty walking s/p peroneal tendon repair History of Current Condition Keila had a peroneal tendon repair on the left on 06/04/19 . She fell on her left knee while using crutches at night on day two post op while at home and at that point got a knee walker which she has been using since. Per her protocol provided by Dr. Jaquez, she is now half way though week 5 she should be weightbearing 75% of her weight while in the boot. But she has not been doing this because she has been scooting up her stairs on her bottom and using the knee walker. 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 Treatment Goals Patient/Caregiver Goals Reduce pain, walk normally Prior Functional Status Baseline Function- ADL's Independent Baseline Function- Mobility Independent Baseline Function- Other Pt fell off of a ladder years ago and tore her tendon, she has been dealing with that since Current Functional Impairments (Reported) Functional Limitations- ADL's scooting up the stairs on her butt, using a knee walker for all mobility Personal Factors Other Personal Factors That May Effect Fibromyalgia, DMII Therapy/Recovery PT-OP-C Subjective Start: 07/11/19 07:33 Freq: Status: Active Protocol: Document 07/21/19 14:30 AMB (Rec: 07/21/19 15:52 AMB [id number]) OP-PT Subjective Patient Comments Patient Comments Pt reports she has been walking a bit without the walker in the house mostly. She still needs to be careful not to over do it or the foot swells a lot. PT-OP-D Balance Start: 07/11/19 07:33 Freq: Status: Active Protocol: Document 07/11/19 08:15 AMB (Rec: 07/13/19 14:06 AMB [email or web address]) OP-PT Balance Assessment Standing Balance Standing Balance Comments requires UE suppport, weightbears extensively on R LE Marquez Fall Scale Copyright Permission PT-OP-J Posture/Palpation/Skin Start: 07/11/19 07:33 Freq: Status: Active Protocol: Document 07/11/19 08:15 AMB (Rec: 07/13/19 14:06 AMB [email or web address]) Skin Assessment Edema Assessment Left Foot Edema Type Pitting Edema Degree 3+ Edema Appearance Puffy,Taut Incisional Assessment Incision Appearance/Comments Scar is scabbing over, currently tight, non-mobile. PT-OP-K Range of Motion Start: 07/11/19 07:33 Freq: Status: Active Protocol: Document 07/11/19 08:15 AMB (Rec: 07/13/19 14:06 AMB [email or web address]) Ankle and Foot Goniometric Range of Motion Ankle and Foot Left Passive Testing Position Supine Plantarflexion 40 Ankle and Foot ROM Limitations Comments missing 12 degrees of dorsiflexion with knee extended PT-OP-Q Treatments Start: 07/11/19 07:33 Freq: Status: Active Protocol: Document 07/21/19 14:30 AMB (Rec: 07/21/19 16:25 AMB [email or web address]) Cardio Equipment Recumbent Bicycle Duration (Minutes) 5 Resistance 6 Therapeutic Exercises Supine Exercises 2 Supine Exercise Name toe curls Reps/Minutes 10 1 Supine Exercise Name ankle PF/DF Resistance AROM Reps/Minutes 10 Gait Training Gait Activity 2 Description ascend descend step to Device Used B rails Level of Assistance SBA Distance/Duration 4 stepsx 2 Comments pt has only one railing at home on the right when ascending 1 Description Ambulation with FWW Level of Assistance SBA Surface smooth Distance/Duration 200'x1 Comments Pt needed vc for step through gait, but this is improved. Continues to put weight through UEs when weightbearing on surgical leg, but not as much as last week. Manual Therapy Treatment Other Other Manual Treatments edema massage , gentle scar massage PT-OP-R Modalities Start: 07/11/19 07:33 Freq: Status: Active Protocol: Document 07/21/19 14:30 AMB (Rec: 07/21/19 16:25 AMB [email or web address]) Hot Pack/Cold Pack Treatment cryocuff Location ankle Patient Position Hooklying Treatment Duration (minutes) 10 Patient Tolerance Good PT-OP-T Assessment and Plan Start: 07/11/19 07:33 Freq: Status: Active Protocol: Document 07/21/19 14:30 AMB (Rec: 07/21/19 16:25 AMB [email or web address]) Physical Therapy Assessment Goals Four Impairment swelling Short Term Goal (STG) Keila will be independent with a swelling management program so that she no longer has pitting edema in her foot/ ankle. STG Duration 4 weeks Three Impairment strength Short Term Goal (STG) Keila will move through full AROM in eversion and inversion STG Duration 4 weeks Nursing Home Goal (LTG) Keila will be able to perform a double leg heel raise without UE support. LTG Duration 8 weeks Two Impairment gait Short Term Goal (STG) Keila will ambulate with a FWW for 100' with a step through gait pattern. STG Duration 4 weeks Nursing Home Goal (LTG) Keila will ambulate without assistive device for 5 minutes without an antalgic gait pattern. LTG Duration 8 weeks One Impairment ROM Short Term Goal (STG) Keial will improve her PROM to neutral ankle dorsiflexion. STG Duration 4 weeks Nursing Home Goal (LTG) Keila will improve her AROM to 10 degrees of ankle dorsiflexion. LTG Duration 8 weeks Assessment Summary Assessment Pt is doing a better job of weightbearing through the foot . She continues to have a step to gait pattern. She continues to have pitting edema, although this is improving in severity. She reports she is doing her exercises. Pt is now allowed to weightbear 100% BW in her walking boot. Physical Therapy Plan Frequency and Duration Frequency of Treatment 2x/Week Duration of Treatment 8 weeks Plan of Care Start Date 07/11/19 Plan of Care End Date 09/05/19 Next Visit Focus/Plan Next Note Type Treatment Note Next Visit Plan Begin with gait training/stair training. Work on re- educating pt re: protocol. Reduce pitting edema, further instruct in HEP and progress appropriately.
--- NOTE | 2019-07-23 17:10 | PT.OTN ---
Current Diagnoses Other specified joint disorders, left ankle and foot (07/23/19) Other specified disorders of synovium and tendon, other site (07/23/19) Other abnormalities of gait and mobility (07/23/19) Physical Therapy Treatment Note PT-OP-A Visit Information Start: 07/11/19 07:33 Freq: Status: Active Protocol: Document 07/23/19 16:58 AW (Rec: 07/23/19 17:10 AW [email or web address]) Out-Patient Physical Therapy Visit Information Visit Information Visit Type Treatment Note Visit Start Time 15:15 Visit Stop Time 16:15 Total Visit Minutes 60 Visit Number 4 Number of DIAGNOSTIC TECHNOLOGIST Visits 0 PT-OP-B Current Condition Start: 07/11/19 07:33 Freq: Status: Active Protocol: Document 07/11/19 08:15 AMB (Rec: 07/13/19 14:00 AMB [email or web address]) Current Condition History of Current Condition Onset Date 06/04/19 Current Complaints Difficulty walking s/p peroneal tendon repair History of Current Condition Keila had a peroneal tendon repair on the left on 06/04/19 . She fell on her left knee while using crutches at night on day two post op while at home and at that point got a knee walker which she has been using since. Per her protocol provided by Dr. Jaquez, she is now half way though week 5 she should be weightbearing 75% of her weight while in the boot. But she has not been doing this because she has been scooting up her stairs on her bottom and using the knee walker. 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 Treatment Goals Patient/Caregiver Goals Reduce pain, walk normally Prior Functional Status Baseline Function- ADL's Independent Baseline Function- Mobility Independent Baseline Function- Other Pt fell off of a ladder years ago and tore her tendon, she has been dealing with that since Current Functional Impairments (Reported) Functional Limitations- ADL's scooting up the stairs on her butt, using a knee walker for all mobility Personal Factors Other Personal Factors That May Effect Fibromyalgia, DMII Therapy/Recovery PT-OP-C Subjective Start: 07/11/19 07:33 Freq: Status: Active Protocol: Document 07/23/19 16:58 AW (Rec: 07/23/19 17:10 AW [email or web address]) OP-PT Subjective Patient Comments Patient Comments Pt states she has been walking short distances in the home without the knee scooter or walker. She continues to note increased swelling after walking without assistive device PT-OP-D Balance Start: 07/11/19 07:33 Freq: Status: Active Protocol: Document 07/11/19 08:15 AMB (Rec: 07/13/19 14:06 AMB [email or web address]) OP-PT Balance Assessment Standing Balance Standing Balance Comments requires UE suppport, weightbears extensively on R LE Marquez Fall Scale Copyright Permission PT-OP-J Posture/Palpation/Skin Start: 07/11/19 07:33 Freq: Status: Active Protocol: Document 07/11/19 08:15 AMB (Rec: 07/13/19 14:06 AMB [email or web address]) Skin Assessment Edema Assessment Left Foot Edema Type Pitting Edema Degree 3+ Edema Appearance Puffy,Taut Incisional Assessment Incision Appearance/Comments Scar is scabbing over, currently tight, non-mobile. PT-OP-K Range of Motion Start: 07/11/19 07:33 Freq: Status: Active Protocol: Document 07/11/19 08:15 AMB (Rec: 07/13/19 14:06 AMB [email or web address]) Ankle and Foot Goniometric Range of Motion Ankle and Foot Left Passive Testing Position Supine Plantarflexion 40 Ankle and Foot ROM Limitations Comments missing 12 degrees of dorsiflexion with knee extended PT-OP-Q Treatments Start: 07/11/19 07:33 Freq: Status: Active Protocol: Document 07/23/19 16:58 AW (Rec: 07/23/19 17:10 AW [email or web address]) Cardio Equipment Recumbent Bicycle Duration (Minutes) 5 Resistance 6 Therapeutic Exercises Supine Exercises 1 Supine Exercise Name ankle PF/DF Resistance AROM Reps/Minutes 10 Therapeutic Activity Therapeutic Activity 1 Name stairs Reps/Minutes 10 min Comments up/down 4 steps x 4 using bilateral rails and step-to pattern SBA Gait Training Gait Activity 1 Description Ambulation with FWW Level of Assistance SBA Surface smooth Distance/Duration 200'x1; 75'x1 Comments Pt verbalized and demonstrated improvement in swing-through gait pattern, but continued to ambulate with decreased left stance time. Pt states she is using the walker more for balance now than actually off- loading her left leg, but it is apparent that she is weightbearing through her arms though possibly decreased. Manual Therapy Treatment Other Other Manual Treatments edema massage, gentle scar massage, pt reports reduced edema today. PT-OP-R Modalities Start: 07/11/19 07:33 Freq: Status: Active Protocol: Document 07/23/19 16:58 AW (Rec: 07/23/19 17:10 AW [email or web address]) Hot Pack/Cold Pack Treatment cryocuff Location ankle Patient Position Hooklying Treatment Duration (minutes) 15 Patient Tolerance Good PT-OP-T Assessment and Plan Start: 07/11/19 07:33 Freq: Status: Active Protocol: Document 07/23/19 16:58 AW (Rec: 07/23/19 17:10 AW [email or web address]) Physical Therapy Assessment Goals Four Impairment swelling Short Term Goal (STG) Keila will be independent with a swelling management program so that she no longer has pitting edema in her foot/ ankle. STG Duration 4 weeks Three Impairment strength Short Term Goal (STG) Keila will move through full AROM in eversion and inversion STG Duration 4 weeks Rfid Developer Goal (LTG) Keila will be able to perform a double leg heel raise without UE support. LTG Duration 8 weeks Two Impairment gait Short Term Goal (STG) Keila will ambulate with a FWW for 100' with a step through gait pattern. STG Duration 4 weeks Alf Goal (LTG) Keila will ambulate without assistive device for 5 minutes without an antalgic gait pattern. LTG Duration 8 weeks One Impairment ROM Short Term Goal (STG) Keila will improve her PROM to neutral ankle dorsiflexion. STG Duration 4 weeks Rfid Developer Goal (LTG) Keila will improve her AROM to 10 degrees of ankle dorsiflexion. LTG Duration 8 weeks Assessment Summary Assessment Pt presents with edema but no pitting noted this date. She responded well to cues for rhythmic gait pattern in an attempt to normalize her stance time bilaterally. Encouraged pt to think of a metronome or song with a strong beat and to coordinate her footfalls with the rhythm. Also discussed the possibility of attempting stair navigation with unilateral rail and SPC in the other hand which she was open to trying in the future. Physical Therapy Plan Frequency and Duration Frequency of Treatment 2x/Week Duration of Treatment 8 weeks Plan of Care Start Date 07/11/19 Plan of Care End Date 09/05/19 Next Visit Focus/Plan Next Note Type Treatment Note Next Visit Plan Continue gait training/stair training. Consider use of SPC for stairs. Continue to reinforce protocol for weightbearing
--- NOTE | 2019-07-31 16:09 | PT.OTN ---
Current Diagnoses Other specified joint disorders, left ankle and foot (07/31/19) Other specified disorders of synovium and tendon, other site (07/31/19) Other abnormalities of gait and mobility (07/31/19) Physical Therapy Treatment Note PT-OP-A Visit Information Start: 07/11/19 07:33 Freq: Status: Active Protocol: Document 07/31/19 13:00 AMB (Rec: 07/31/19 13:48 AMB [id number]) Out-Patient Physical Therapy Visit Information Visit Information Visit Type Treatment Note Visit Start Time 13:00 Visit Stop Time 13:55 Total Visit Minutes 55 Visit Number 5 PT-OP-B Current Condition Start: 07/11/19 07:33 Freq: Status: Active Protocol: Document 07/11/19 08:15 AMB (Rec: 07/13/19 14:00 AMB [email or web address]) Current Condition History of Current Condition Onset Date 06/04/19 Current Complaints Difficulty walking s/p peroneal tendon repair History of Current Condition Keila had a peroneal tendon repair on the left on 06/04/19 . She fell on her left knee while using crutches at night on day two post op while at home and at that point got a knee walker which she has been using since. Per her protocol provided by Dr. Jaquez, she is now half way though week 5 she should be weightbearing 75% of her weight while in the boot. But she has not been doing this because she has been scooting up her stairs on her bottom and using the knee walker. 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 Treatment Goals Patient/Caregiver Goals Reduce pain, walk normally Prior Functional Status Baseline Function- ADL's Independent Baseline Function- Mobility Independent Baseline Function- Other Pt fell off of a ladder years ago and tore her tendon, she has been dealing with that since Current Functional Impairments (Reported) Functional Limitations- ADL's scooting up the stairs on her butt, using a knee walker for all mobility Personal Factors Other Personal Factors That May Effect Fibromyalgia, DMII Therapy/Recovery PT-OP-C Subjective Start: 07/11/19 07:33 Freq: Status: Active Protocol: Document 07/31/19 13:00 AMB (Rec: 07/31/19 13:48 AMB [id number]) OP-PT Subjective Patient Comments Patient Comments Keila states she hasn't been using her knee walker for the past few days. PT-OP-D Balance Start: 07/11/19 07:33 Freq: Status: Active Protocol: Document 07/11/19 08:15 AMB (Rec: 07/13/19 14:06 AMB [email or web address]) OP-PT Balance Assessment Standing Balance Standing Balance Comments requires UE suppport, weightbears extensively on R LE Marquez Fall Scale Copyright Permission PT-OP-J Posture/Palpation/Skin Start: 07/11/19 07:33 Freq: Status: Active Protocol: Document 07/11/19 08:15 AMB (Rec: 07/13/19 14:06 AMB [email or web address]) Skin Assessment Edema Assessment Left Foot Edema Type Pitting Edema Degree 3+ Edema Appearance Puffy,Taut Incisional Assessment Incision Appearance/Comments Scar is scabbing over, currently tight, non-mobile. PT-OP-K Range of Motion Start: 07/11/19 07:33 Freq: Status: Active Protocol: Document 07/11/19 08:15 AMB (Rec: 07/13/19 14:06 AMB [email or web address]) Ankle and Foot Goniometric Range of Motion Ankle and Foot Left Passive Testing Position Supine Plantarflexion 40 Ankle and Foot ROM Limitations Comments missing 12 degrees of dorsiflexion with knee extended PT-OP-Q Treatments Start: 07/11/19 07:33 Freq: Status: Active Protocol: Document 07/31/19 13:00 AMB (Rec: 07/31/19 16:08 AMB [email or web address]) Cardio Equipment Recumbent Bicycle Duration (Minutes) 8 Resistance 6 Therapeutic Exercises Supine Exercises 6 Supine Exercise Name eversion/inversion AROM Reps/Minutes 30 5 Supine Exercise Name heel ABCs Reps/Minutes 20 4 Supine Exercise Name active calf/hamstring stretch Reps/Minutes 30 3 Supine Exercise Name SLR with TA Reps/Minutes 10 1 Supine Exercise Name ankle PF/DF Resistance AROM Reps/Minutes 10 Manual Therapy Treatment Other Other Manual Treatments edema massage, gentle scar massage, no pitting today, tenderness over scar even with light palpation PT-OP-R Modalities Start: 07/11/19 07:33 Freq: Status: Active Protocol: Document 07/31/19 13:00 AMB (Rec: 07/31/19 16:08 AMB [email or web address]) Hot Pack/Cold Pack Treatment cryocuff Location ankle Patient Position Hooklying Treatment Duration (minutes) 15 Patient Tolerance Good PT-OP-T Assessment and Plan Start: 07/11/19 07:33 Freq: Status: Active Protocol: Document 07/31/19 13:00 AMB (Rec: 07/31/19 16:08 AMB [email or web address]) Physical Therapy Assessment Assessment Summary Assessment Pt has not tried weaning from her walking boot yet, but agrees to get an ankle brace with metal supports laterally and medially and start working on wearing that increasing by about an hour or two a day. Physical Therapy Plan Next Visit Focus/Plan Next Note Type Treatment Note Next Visit Plan Continue gait training/stair training. Consider use of SPC for stairs. Continue to reinforce protocol for weightbearing, work on weaning off of boot towards ankle brace
--- NOTE | 2019-08-05 14:04 | PT.OTN ---
Current Diagnoses Other specified joint disorders, left ankle and foot (08/05/19) Other specified disorders of synovium and tendon, other site (08/05/19) Other abnormalities of gait and mobility (08/05/19) Physical Therapy Treatment Note PT-OP-A Visit Information Start: 07/11/19 07:33 Freq: Status: Active Protocol: Document 08/05/19 10:15 AMB (Rec: 08/05/19 14:00 AMB [email or web address]) Out-Patient Physical Therapy Visit Information Visit Information Visit Type Treatment Note Visit Note 01/29 Visit Start Time 10:40 Visit Stop Time 11:10 Total Visit Minutes 30 Visit Number 6 Number of PLASMA PROCESSING CENTRIFUGE OPERATOR Visits 0 PT-OP-B Current Condition Start: 07/11/19 07:33 Freq: Status: Active Protocol: Document 07/11/19 08:15 AMB (Rec: 07/13/19 14:00 AMB [email or web address]) Current Condition History of Current Condition Onset Date 06/04/19 Current Complaints Difficulty walking s/p peroneal tendon repair History of Current Condition Keila had a peroneal tendon repair on the left on 06/04/19 . She fell on her left knee while using crutches at night on day two post op while at home and at that point got a knee walker which she has been using since. Per her protocol provided by Dr. Jaquez, she is now half way though week 5 she should be weightbearing 75% of her weight while in the boot. But she has not been doing this because she has been scooting up her stairs on her bottom and using the knee walker. 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 Treatment Goals Patient/Caregiver Goals Reduce pain, walk normally Prior Functional Status Baseline Function- ADL's Independent Baseline Function- Mobility Independent Baseline Function- Other Pt fell off of a ladder years ago and tore her tendon, she has been dealing with that since Current Functional Impairments (Reported) Functional Limitations- ADL's scooting up the stairs on her butt, using a knee walker for all mobility Personal Factors Other Personal Factors That May Effect Fibromyalgia, DMII Therapy/Recovery PT-OP-C Subjective Start: 07/11/19 07:33 Freq: Status: Active Protocol: Document 08/05/19 10:15 AMB (Rec: 08/05/19 14:00 AMB [email or web address]) OP-PT Subjective Patient Comments Patient Comments Keila states she has been using the brace at home not using a shoe. She is continuing to wear the boot in the community, but without assistive device. This has been irritating her back. PT-OP-D Balance Start: 07/11/19 07:33 Freq: Status: Active Protocol: Document 07/11/19 08:15 AMB (Rec: 07/13/19 14:06 AMB [email or web address]) OP-PT Balance Assessment Standing Balance Standing Balance Comments requires UE suppport, weightbears extensively on R LE Marquez Fall Scale Copyright Permission PT-OP-J Posture/Palpation/Skin Start: 07/11/19 07:33 Freq: Status: Active Protocol: Document 07/11/19 08:15 AMB (Rec: 07/13/19 14:06 AMB [email or web address]) Skin Assessment Edema Assessment Left Foot Edema Type Pitting Edema Degree 3+ Edema Appearance Puffy,Taut Incisional Assessment Incision Appearance/Comments Scar is scabbing over, currently tight, non-mobile. PT-OP-K Range of Motion Start: 07/11/19 07:33 Freq: Status: Active Protocol: Document 07/11/19 08:15 AMB (Rec: 07/13/19 14:06 AMB [email or web address]) Ankle and Foot Goniometric Range of Motion Ankle and Foot Left Passive Testing Position Supine Plantarflexion 40 Ankle and Foot ROM Limitations Comments missing 12 degrees of dorsiflexion with knee extended PT-OP-Q Treatments Start: 07/11/19 07:33 Freq: Status: Active Protocol: Document 08/05/19 10:15 AMB (Rec: 08/05/19 14:00 AMB [email or web address]) Therapeutic Exercises Supine Exercises 6 Supine Exercise Name eversion/inversion AROM Reps/Minutes 30 1 Supine Exercise Name ankle PF/DF Resistance AROM Reps/Minutes 20 Gait Training Gait Activity 1 Description Ambulation with SPC and boot Level of Assistance SBA Surface smooth Distance/Duration 75'x1 Comments Pt verbalized her back feeling better with SPC use, slow and controlled, takes a lot of concentration, but should improve with practice. Manual Therapy Treatment Other Other Manual Treatments massage with towel over scar for light sensitization PT-OP-R Modalities Start: 07/11/19 07:33 Freq: Status: Active Protocol: Document 12/17/19 10:15 AMB (Rec: 08/05/19 14:04 AMB [email or web address]) Hot Pack/Cold Pack Treatment cryocuff Location ankle Patient Position Hooklying Treatment Duration (minutes) 15 Patient Tolerance Good PT-OP-T Assessment and Plan Start: 07/11/19 07:33 Freq: Status: Active Protocol: Document 08/05/19 10:15 AMB (Rec: 08/05/19 14:00 AMB [email or web address]) Physical Therapy Assessment Assessment Summary Assessment Pt's swelling is improving, continues to be stiff into all planes, but pt is doing AROM and stretching at home. Gait with SPC was slow and careful, but looked better for her back than gait without AD. Physical Therapy Plan Next Visit Focus/Plan Next Note Type Treatment Note Next Visit Plan Asked pt to bring in brace and shoe for gait training with brace and SPC next visit. Try stairs if pt safe to do so after gait training.
--- NOTE | 2019-08-08 10:40 | PT.OTN ---
Current Diagnoses Other specified joint disorders, left ankle and foot (08/08/19) Other specified disorders of synovium and tendon, other site (08/08/19) Other abnormalities of gait and mobility (08/08/19) Physical Therapy Treatment Note PT-OP-A Visit Information Start: 07/11/19 07:33 Freq: Status: Active Protocol: Document 08/08/19 09:49 SP (Rec: 08/08/19 11:25 SP [id number]) Out-Patient Physical Therapy Visit Information Visit Information Visit Type Treatment Note Visit Note 02/28 Visit Start Time 09:49 Visit Stop Time 10:40 Total Visit Minutes 51 Visit Number 7 Number of BUSINESS TRAINER Visits 1 PT-OP-B Current Condition Start: 07/11/19 07:33 Freq: Status: Active Protocol: Document 07/11/19 08:15 AMB (Rec: 07/13/19 14:00 AMB [email or web address]) Current Condition History of Current Condition Onset Date 06/04/19 Current Complaints Difficulty walking s/p peroneal tendon repair History of Current Condition Keila had a peroneal tendon repair on the left on 06/04/19 . She fell on her left knee while using crutches at night on day two post op while at home and at that point got a knee walker which she has been using since. Per her protocol provided by Dr. Jaquez, she is now half way though week 5 she should be weightbearing 75% of her weight while in the boot. But she has not been doing this because she has been scooting up her stairs on her bottom and using the knee walker. 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 Treatment Goals Patient/Caregiver Goals Reduce pain, walk normally Prior Functional Status Baseline Function- ADL's Independent Baseline Function- Mobility Independent Baseline Function- Other Pt fell off of a ladder years ago and tore her tendon, she has been dealing with that since Current Functional Impairments (Reported) Functional Limitations- ADL's scooting up the stairs on her butt, using a knee walker for all mobility Personal Factors Other Personal Factors That May Effect Fibromyalgia, DMII Therapy/Recovery PT-OP-C Subjective Start: 07/11/19 07:33 Freq: Status: Active Protocol: Document 08/08/19 09:49 SP (Rec: 08/08/19 11:25 SP [id number]) OP-PT Subjective Patient Comments Patient Comments 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 and the neoprene brace with plastic stay is more tolerable the previously metal ones. Still very stiff when first getup in the am but improves toward end of the day. Pt stated saw physician same day after last PT appt and noted still a stitch that didn't self dissolve so trimmed back and was told will watch if needed more. PT-OP-D Balance Start: 07/11/19 07:33 Freq: Status: Active Protocol: Document 07/11/19 08:15 AMB (Rec: 07/13/19 14:06 AMB [email or web address]) OP-PT Balance Assessment Standing Balance Standing Balance Comments requires UE suppport, weightbears extensively on R LE Marquez Fall Scale Copyright Permission PT-OP-J Posture/Palpation/Skin Start: 07/11/19 07:33 Freq: Status: Active Protocol: Document 07/11/19 08:15 AMB (Rec: 07/13/19 14:06 AMB [email or web address]) Skin Assessment Edema Assessment Left Foot Edema Type Pitting Edema Degree 3+ Edema Appearance Puffy,Taut Incisional Assessment Incision Appearance/Comments Scar is scabbing over, currently tight, non-mobile. PT-OP-K Range of Motion Start: 07/11/19 07:33 Freq: Status: Active Protocol: Document 07/11/19 08:15 AMB (Rec: 07/13/19 14:06 AMB [email or web address]) Ankle and Foot Goniometric Range of Motion Ankle and Foot Left Passive Testing Position Supine Plantarflexion 40 Ankle and Foot ROM Limitations Comments missing 12 degrees of dorsiflexion with knee extended PT-OP-Q Treatments Start: 07/11/19 07:33 Freq: Status: Active Protocol: Document 08/08/19 09:49 SP (Rec: 08/08/19 11:25 SP [id number]) Therapeutic Exercises Sitting Exercises G/S towel stretch Side left Equipment Used strap Reps/Minutes 30 x3 Comments cued neutral Pronation and toe abd Side left Reps/Minutes 5 sec hold x10 AROM ankle Sitting Exercise Name EV, DF, PF Side left Resistance AROM x10 each direction, TB #1 x10 each Comments initially long sitting then knee bent in chair, cued for stationary knee Standing Exercises ankle mobility Standing Exercise Name DF ROM Side left Resistance AROM Equipment Used foot on step Reps/Minutes x10 Comments cued holding rail and move into knee flexion/DF ROM 1 Standing Exercise Name Gastroc stretch off step Side left Reps/Minutes 20 x3 Comments neutral ankle positioning Other Exercises step mgt Other Exercise Name ascend/descend 4 step Equipment Used RHR, L SPC Reps/Minutes x4 sets Comments step to initially, then step over step allow heel lift descend Manual Therapy Treatment Soft Tissue Mobilization scar mobility Body Location scar mobility Mobilization Type Cross-Friction,Myofascial Release Intensity/Depth Moderate Body Position Supine Comments tolerated well, careful over scab area PT-OP-R Modalities Start: 07/11/19 07:33 Freq: Status: Active Protocol: Document 08/05/19 10:15 AMB (Rec: 08/05/19 14:04 AMB [email or web address]) Hot Pack/Cold Pack Treatment cryocuff Location ankle Patient Position Hooklying Treatment Duration (minutes) 15 Patient Tolerance Good PT-OP-T Assessment and Plan Start: 07/11/19 07:33 Freq: Status: Active Protocol: Document 08/08/19 09:49 SP (Rec: 08/08/19 11:25 SP [id number]) Physical Therapy Assessment Goals Four Impairment swelling Short Term Goal (STG) Keila will be independent with a swelling management program so that she no longer has pitting edema in her foot/ ankle. STG Duration 4 weeks Three Impairment strength Short Term Goal (STG) Keila will move through full AROM in eversion and inversion STG Duration 4 weeks Shelter Goal (LTG) Keila will be able to perform a double leg heel raise without UE support. LTG Duration 8 weeks Two Impairment gait Short Term Goal (STG) Keila will ambulate with a FWW for 100' with a step through gait pattern. STG Duration 4 weeks Rice Cleaning Machine Tender Goal (LTG) Keila will ambulate without assistive device for 5 minutes without an antalgic gait pattern. LTG Duration 8 weeks One Impairment ROM Short Term Goal (STG) Keila will improve her PROM to neutral ankle dorsiflexion. STG Duration 4 weeks Rice Cleaning Machine Tender Goal (LTG) Keila will improve her AROM to 10 degrees of ankle dorsiflexion. LTG Duration 8 weeks Assessment Summary Assessment Pt swelling continue to improve. Instructed on self scar mobility multidirectional with caution over scab. Educated patient in self AROM initially when wakes up: DF/PF /EV/ toe abd w/ pronation to loosen up ankle prior to walking. Pt demonstrates improved level pelvis walking, cued to decrease LLE stride length and RUE WB on SPC as needed to work toward normal gait with improvement B stance time demonstrated. Initiated Tb ankle strengthen EV/PF/DF with cuing neutral ankle positioning, pronation w/ toe abd, calf stretching and scar mobilitiy today with positive feedback. Pt was able to perform stair step over step ascending with cue for SPC LUE positioning and slow control descending allowing heel lift and slow control. Improved in control post calf stretch. No pain end of tx can move ankle more end of tx. Physical Therapy Plan Frequency and Duration Frequency of Treatment 2x/Week Duration of Treatment 8 weeks Plan of Care Start Date 07/11/19 Plan of Care End Date 09/05/19 Therapeutic Interventions Therapeutic Interventions Aquatic Therapy,Balance Training,Gait Training,Home Exercise Program,Joint Mobilizations,Manual Therapy, Neuromuscular Re-education, Soft Tissue Mobilization, Therapeutic Activities, Therapeutic Exercises Modalities Cold Pack/Ice Massage,Electric Stimulation,Hot Packs, Ultrasound Next Visit Focus/Plan Next Note Type Treatment Note Next Visit Plan Assess response to added TB L ankle strengthening, calf stretching, stair training, manual / self scar mobility. Continue per PT POC: Continue gait training/stair training. Consider use of SPC for stairs. Continue to reinforce protocol for weightbearing and normal gait.
--- NOTE | 2019-08-15 14:44 | PT.OTN ---
Current Diagnoses Other specified joint disorders, left ankle and foot (08/15/19) Other specified disorders of synovium and tendon, other site (08/15/19) Other abnormalities of gait and mobility (08/15/19) Physical Therapy Treatment Note PT-OP-A Visit Information Start: 07/11/19 07:33 Freq: Status: Active Protocol: Document 08/15/19 10:41 LRN (Rec: 08/15/19 11:22 LRN [id number]) Out-Patient Physical Therapy Visit Information Visit Information Visit Type Treatment Note Visit Start Time 10:42 Visit Stop Time 11:40 Total Visit Minutes 58 Visit Number 8 Number of CRITICAL CARE PHYSICIAN ASSISTANT Visits 0 PT-OP-B Current Condition Start: 07/11/19 07:33 Freq: Status: Active Protocol: Document 07/11/19 08:15 AMB (Rec: 07/13/19 14:00 AMB [email or web address]) Current Condition History of Current Condition Onset Date 06/04/19 Current Complaints Difficulty walking s/p peroneal tendon repair History of Current Condition Keila had a peroneal tendon repair on the left on 06/04/19 . She fell on her left knee while using crutches at night on day two post op while at home and at that point got a knee walker which she has been using since. Per her protocol provided by Dr. Jaquez, she is now half way though week 5 she should be weightbearing 75% of her weight while in the boot. But she has not been doing this because she has been scooting up her stairs on her bottom and using the knee walker. 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 Treatment Goals Patient/Caregiver Goals Reduce pain, walk normally Prior Functional Status Baseline Function- ADL's Independent Baseline Function- Mobility Independent Baseline Function- Other Pt fell off of a ladder years ago and tore her tendon, she has been dealing with that since Current Functional Impairments (Reported) Functional Limitations- ADL's scooting up the stairs on her butt, using a knee walker for all mobility Personal Factors Other Personal Factors That May Effect Fibromyalgia, DMII Therapy/Recovery PT-OP-C Subjective Start: 07/11/19 07:33 Freq: Status: Active Protocol: Document 08/15/19 10:41 LRN (Rec: 08/15/19 11:22 LRN [id number]) OP-PT Subjective Patient Comments Patient Comments Using a cane more, so walking is more natural without the liimping. States she hasn't done the T-Band ex's due to the business of the holiday. PT-OP-D Balance Start: 07/11/19 07:33 Freq: Status: Active Protocol: Document 07/11/19 08:15 AMB (Rec: 07/13/19 14:06 AMB [email or web address]) OP-PT Balance Assessment Standing Balance Standing Balance Comments requires UE suppport, weightbears extensively on R LE Marquez Fall Scale Copyright Permission PT-OP-J Posture/Palpation/Skin Start: 07/11/19 07:33 Freq: Status: Active Protocol: Document 07/11/19 08:15 AMB (Rec: 07/13/19 14:06 AMB [email or web address]) Skin Assessment Edema Assessment Left Foot Edema Type Pitting Edema Degree 3+ Edema Appearance Puffy,Taut Incisional Assessment Incision Appearance/Comments Scar is scabbing over, currently tight, non-mobile. PT-OP-K Range of Motion Start: 07/11/19 07:33 Freq: Status: Active Protocol: Document 07/11/19 08:15 AMB (Rec: 07/13/19 14:06 AMB [email or web address]) Ankle and Foot Goniometric Range of Motion Ankle and Foot Left Passive Testing Position Supine Plantarflexion 40 Ankle and Foot ROM Limitations Comments missing 12 degrees of dorsiflexion with knee extended PT-OP-Q Treatments Start: 07/11/19 07:33 Freq: Status: Active Protocol: Document 08/15/19 10:41 LRN (Rec: 08/15/19 11:22 LRN [id number]) Therapeutic Exercises Sitting Exercises T-Band Ankle ex Sitting Exercise Name Ankle PF/DF/EV Equipment Used Lev1 T-Band Reps/Minutes 10x each G/S towel stretch Side left Equipment Used strap Reps/Minutes 30 x3 Comments cued neutral Pronation and toe abd Side left Reps/Minutes 5 sec hold x10 AROM ankle Sitting Exercise Name EV, DF, PF Side left Resistance AROM x10 each direction, TB #1 x10 each Standing Exercises ankle mobility Standing Exercise Name DF ROM Side left Resistance AROM Equipment Used foot on step Reps/Minutes x10 Comments cued holding rail and move into knee flexion/DF ROM 1 Standing Exercise Name Gastroc stretch off step Side left Reps/Minutes 20 x3 Comments neutral ankle positioning Other Exercises step mgt Other Exercise Name ascend/descend 4 step Equipment Used RHR, L SPC Reps/Minutes x10 sets Comments step to initially, then step over step allow heel lift descend Manual Therapy Treatment Soft Tissue Mobilization scar mobility Body Location scar mobility Mobilization Type Cross-Friction,Myofascial Release Intensity/Depth Moderate Body Position Supine Comments tolerated well, careful over scab area PT-OP-R Modalities Start: 07/11/19 07:33 Freq: Status: Active Protocol: Document 08/15/19 10:41 LRN (Rec: 08/15/19 11:22 LRN [id number]) Hot Pack/Cold Pack Treatment Cold Pack Location Ankle Patient Position Supine Treatment Duration (minutes) 10 Comments Leg elevated for drainage. cryocuff Patient Position Supine PT-OP-T Assessment and Plan Start: 07/11/19 07:33 Freq: Status: Active Protocol: Document 08/15/19 10:41 LRN (Rec: 08/15/19 11:22 LRN [id number]) Physical Therapy Assessment Goals Four Impairment swelling Short Term Goal (STG) Keila will be independent with a swelling management program so that she no longer has pitting edema in her foot/ ankle. STG Duration 4 weeks Three Impairment strength Short Term Goal (STG) Keila will move through full AROM in eversion and inversion STG Duration 4 weeks Mcc Goal (LTG) Keila will be able to perform a double leg heel raise without UE support. LTG Duration 8 weeks Two Impairment gait Short Term Goal (STG) Keila will ambulate with a FWW for 100' with a step through gait pattern. STG Duration 4 weeks Cloth Bale Header Goal (LTG) Keila will ambulate without assistive device for 5 minutes without an antalgic gait pattern. LTG Duration 8 weeks One Impairment ROM Short Term Goal (STG) Keila will improve her PROM to neutral ankle dorsiflexion. STG Duration 4 weeks Mcc Goal (LTG) Keila will improve her AROM to 10 degrees of ankle dorsiflexion. LTG Duration 8 weeks Assessment Summary Assessment Pt hasn't done the T-Band ankle ex's; therefore review of tolerance is needed. No complaints of pain with stretching of the ankle. Her scar mobility is good with one area of restriction noted. Physical Therapy Plan Frequency and Duration Frequency of Treatment 2x/Week Duration of Treatment 8 weeks Plan of Care Start Date 07/11/19 Plan of Care End Date 09/05/19 Next Visit Focus/Plan Next Note Type Treatment Note Next Visit Plan Assess goals and response to added TB L ankle strengthening . Continue per PT POC: Continue gait training/stair training. Continue gait training of SPC for stairs. Continue to reinforce protocol for weightbearing and normal gait.
--- NOTE | 2019-08-21 09:33 | PT-OP ANOTE ---
Pt no showed her appointment. Called, and she said she was confused by the reminder call, and that she thought she had no showed an appointment yesterday.
--- NOTE | 2019-08-27 15:15 | PT.OTN ---
Current Diagnoses Other specified joint disorders, left ankle and foot (08/27/19) Other specified disorders of synovium and tendon, other site (08/27/19) Other abnormalities of gait and mobility (08/27/19) Physical Therapy Treatment Note PT-OP-A Visit Information Start: 07/11/19 07:33 Freq: Status: Active Protocol: Document 08/27/19 15:15 AW (Rec: 08/31/19 11:56 AW [id number]) Out-Patient Physical Therapy Visit Information Visit Information Visit Type Treatment Note Visit Start Time 14:30 Visit Stop Time 15:30 Total Visit Minutes 60 Visit Number 10 Number of BIRD CAGE ASSEMBLER Visits 0 Evaluation Information Evaluation Date 06/04/19 PT-OP-B Current Condition Start: 07/11/19 07:33 Freq: Status: Active Protocol: Document 07/11/19 08:15 AMB (Rec: 07/13/19 14:00 AMB [email or web address]) Current Condition History of Current Condition Onset Date 06/04/19 Current Complaints Difficulty walking s/p peroneal tendon repair History of Current Condition Keila had a peroneal tendon repair on the left on 06/04/19 . She fell on her left knee while using crutches at night on day two post op while at home and at that point got a knee walker which she has been using since. Per her protocol provided by Dr. Jaquez, she is now half way though week 5 she should be weightbearing 75% of her weight while in the boot. But she has not been doing this because she has been scooting up her stairs on her bottom and using the knee walker. 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 Treatment Goals Patient/Caregiver Goals Reduce pain, walk normally Prior Functional Status Baseline Function- ADL's Independent Baseline Function- Mobility Independent Baseline Function- Other Pt fell off of a ladder years ago and tore her tendon, she has been dealing with that since Current Functional Impairments (Reported) Functional Limitations- ADL's scooting up the stairs on her butt, using a knee walker for all mobility Personal Factors Other Personal Factors That May Effect Fibromyalgia, DMII Therapy/Recovery PT-OP-C Subjective Start: 07/11/19 07:33 Freq: Status: Active Protocol: Document 08/27/19 15:15 AW (Rec: 08/31/19 11:56 AW [id number]) OP-PT Subjective Patient Comments Patient Comments Pt states she has noticed increased swelling in the evenings, so she tends to limit her evening activity. She has been walking quite a bit. PT-OP-D Balance Start: 07/11/19 07:33 Freq: Status: Active Protocol: Document 07/11/19 08:15 AMB (Rec: 07/13/19 14:06 AMB [email or web address]) OP-PT Balance Assessment Standing Balance Standing Balance Comments requires UE suppport, weightbears extensively on R LE Marquez Fall Scale Copyright Permission PT-OP-J Posture/Palpation/Skin Start: 07/11/19 07:33 Freq: Status: Active Protocol: Document 07/11/19 08:15 AMB (Rec: 07/13/19 14:06 AMB [email or web address]) Skin Assessment Edema Assessment Left Foot Edema Type Pitting Edema Degree 3+ Edema Appearance Puffy,Taut Incisional Assessment Incision Appearance/Comments Scar is scabbing over, currently tight, non-mobile. PT-OP-K Range of Motion Start: 07/11/19 07:33 Freq: Status: Active Protocol: Document 07/11/19 08:15 AMB (Rec: 07/13/19 14:06 AMB [email or web address]) Ankle and Foot Goniometric Range of Motion Ankle and Foot Left Passive Testing Position Supine Plantarflexion 40 Ankle and Foot ROM Limitations Comments missing 12 degrees of dorsiflexion with knee extended PT-OP-Q Treatments Start: 07/11/19 07:33 Freq: Status: Active Protocol: Document 08/27/19 15:15 AW (Rec: 08/31/19 11:56 AW [id number]) Therapeutic Exercises Sitting Exercises T-Band Ankle ex Sitting Exercise Name Ankle PF/DF/EV Equipment Used Lev2 T-Band Reps/Minutes 10x each Standing Exercises standing eversion Standing Exercise Name standing eversion Side left Resistance body weight Reps/Minutes 2x10 reps Gait Training Gait Activity 2 Description ascend step over step; descend step to Device Used R HR ascending; SPC in L UE Level of Assistance SBA Distance/Duration 4 stepsx 10 1 Description Ambulation with SPC Level of Assistance SBA Surface tile, carpet Distance/Duration 175' x 2 Treatment Focus equalizing step lengths Comments Pt complains of pain due to increased swelling today Manual Therapy Treatment Soft Tissue Mobilization scar mobility Body Location scar mobility, edema management Mobilization Type Cross-Friction,Myofascial Release Intensity/Depth Moderate Body Position Supine Comments tolerated well, careful over scab area Joint Mobilizations 1 Joint talocrural Direction A-->P Grade IV Body Position Hooklying Reps/Duration 5 minutes PT-OP-R Modalities Start: 07/11/19 07:33 Freq: Status: Active Protocol: Document 08/19/19 09:00 AMB (Rec: 08/19/19 11:52 AMB [email or web address]) Hot Pack/Cold Pack Treatment Cold Pack Location Ankle Patient Position Supine Treatment Duration (minutes) 10 Comments cryocuff PT-OP-T Assessment and Plan Start: 07/11/19 07:33 Freq: Status: Active Protocol: Document 08/27/19 15:15 AW (Rec: 08/31/19 11:56 AW [id number]) Physical Therapy Assessment Goals Four Impairment swelling Short Term Goal (STG) Keila will be independent with a swelling management program so that she no longer has pitting edema in her foot/ ankle. STG Duration MET Three Impairment strength Short Term Goal (STG) Keila will move through full AROM in eversion and inversion STG Duration 4 weeks Leather Scrubber Goal (LTG) Keila will be able to perform a double leg heel raise without UE support. LTG Duration 8 weeks Two Impairment gait Short Term Goal (STG) Keila will ambulate with a FWW for 100' with a step through gait pattern. STG Duration 4 weeks Leather Scrubber Goal (LTG) Keila will ambulate without assistive device for 5 minutes without an antalgic gait pattern. LTG Duration 8 weeks One Impairment ROM Short Term Goal (STG) Keila will improve her PROM to neutral ankle dorsiflexion. STG Duration MET Leather Scrubber Goal (LTG) Keila will improve her AROM to 10 degrees of ankle dorsiflexion. LTG Duration 8 weeks Assessment Summary Assessment Pt able to improve gait pattern today with more equal weightbearing/step lengths in response to verbal cues during gait training with SPC. Encouraged pt to continue with HEP. Physical Therapy Plan Frequency and Duration Frequency of Treatment 2x/Week Duration of Treatment 8 weeks Plan of Care Start Date 07/11/19 Plan of Care End Date 09/05/19 Next Visit Focus/Plan Next Note Type Treatment Note Next Visit Plan Continue gait training/stair training. Continue gait training of SPC for stairs. Continue to reinforce protocol for weightbearing and normal gait.
--- NOTE | 2019-10-23 11:54 | PT.OTN ---
Current Diagnoses Other specified joint disorders, left ankle and foot (08/27/19) Other specified disorders of synovium and tendon, other site (08/27/19) Other abnormalities of gait and mobility (08/27/19) Physical Therapy Treatment Note PT-OP-A Visit Information Start: 07/11/19 07:33 Freq: Status: Active Protocol: Document 08/27/19 15:15 AW (Rec: 08/31/19 11:56 AW [id number]) Out-Patient Physical Therapy Visit Information Visit Information Visit Type Treatment Note Visit Start Time 14:30 Visit Stop Time 15:30 Total Visit Minutes 60 Visit Number 10 Number of SILVER BRAZER Visits 0 Evaluation Information Evaluation Date 06/04/19 PT-OP-B Current Condition Start: 07/11/19 07:33 Freq: Status: Active Protocol: Document 07/11/19 08:15 AMB (Rec: 07/13/19 14:00 AMB [email or web address]) Current Condition History of Current Condition Onset Date 06/04/19 Current Complaints Difficulty walking s/p peroneal tendon repair History of Current Condition Keila had a peroneal tendon repair on the left on 06/04/19 . She fell on her left knee while using crutches at night on day two post op while at home and at that point got a knee walker which she has been using since. Per her protocol provided by Dr. Jaquez, she is now half way though week 5 she should be weightbearing 75% of her weight while in the boot. But she has not been doing this because she has been scooting up her stairs on her bottom and using the knee walker. 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 Treatment Goals Patient/Caregiver Goals Reduce pain, walk normally Prior Functional Status Baseline Function- ADL's Independent Baseline Function- Mobility Independent Baseline Function- Other Pt fell off of a ladder years ago and tore her tendon, she has been dealing with that since Current Functional Impairments (Reported) Functional Limitations- ADL's scooting up the stairs on her butt, using a knee walker for all mobility Personal Factors Other Personal Factors That May Effect Fibromyalgia, DMII Therapy/Recovery PT-OP-C Subjective Start: 07/11/19 07:33 Freq: Status: Active Protocol: Document 08/27/19 15:15 AW (Rec: 08/31/19 11:56 AW [id number]) OP-PT Subjective Patient Comments Patient Comments Pt states she has noticed increased swelling in the evenings, so she tends to limit her evening activity. She has been walking quite a bit. PT-OP-D Balance Start: 07/11/19 07:33 Freq: Status: Active Protocol: Document 07/11/19 08:15 AMB (Rec: 07/13/19 14:06 AMB [email or web address]) OP-PT Balance Assessment Standing Balance Standing Balance Comments requires UE suppport, weightbears extensively on R LE Marquez Fall Scale Copyright Permission PT-OP-J Posture/Palpation/Skin Start: 07/11/19 07:33 Freq: Status: Active Protocol: Document 07/11/19 08:15 AMB (Rec: 07/13/19 14:06 AMB [email or web address]) Skin Assessment Edema Assessment Left Foot Edema Type Pitting Edema Degree 3+ Edema Appearance Puffy,Taut Incisional Assessment Incision Appearance/Comments Scar is scabbing over, currently tight, non-mobile. PT-OP-K Range of Motion Start: 07/11/19 07:33 Freq: Status: Active Protocol: Document 07/11/19 08:15 AMB (Rec: 07/13/19 14:06 AMB [email or web address]) Ankle and Foot Goniometric Range of Motion Ankle and Foot Left Passive Testing Position Supine Plantarflexion 40 Ankle and Foot ROM Limitations Comments missing 12 degrees of dorsiflexion with knee extended PT-OP-Q Treatments Start: 07/11/19 07:33 Freq: Status: Active Protocol: Document 08/27/19 15:15 AW (Rec: 08/31/19 11:56 AW [id number]) Therapeutic Exercises Sitting Exercises T-Band Ankle ex Sitting Exercise Name Ankle PF/DF/EV Equipment Used Lev2 T-Band Reps/Minutes 10x each Standing Exercises standing eversion Standing Exercise Name standing eversion Side left Resistance body weight Reps/Minutes 2x10 reps Gait Training Gait Activity 2 Description ascend step over step; descend step to Device Used R HR ascending; SPC in L UE Level of Assistance SBA Distance/Duration 4 stepsx 10 1 Description Ambulation with SPC Level of Assistance SBA Surface tile, carpet Distance/Duration 175' x 2 Treatment Focus equalizing step lengths Comments Pt complains of pain due to increased swelling today Manual Therapy Treatment Soft Tissue Mobilization scar mobility Body Location scar mobility, edema management Mobilization Type Cross-Friction,Myofascial Release Intensity/Depth Moderate Body Position Supine Comments tolerated well, careful over scab area Joint Mobilizations 1 Joint talocrural Direction A-->P Grade IV Body Position Hooklying Reps/Duration 5 minutes PT-OP-R Modalities Start: 07/11/19 07:33 Freq: Status: Active Protocol: Document 08/19/19 09:00 AMB (Rec: 08/19/19 11:52 AMB [email or web address]) Hot Pack/Cold Pack Treatment Cold Pack Location Ankle Patient Position Supine Treatment Duration (minutes) 10 Comments cryocuff PT-OP-T Assessment and Plan Start: 07/11/19 07:33 Freq: Status: Active Protocol: Document 10/23/19 11:46 AMB (Rec: 10/23/19 11:53 AMB [id number]) Physical Therapy Assessment Goals Four Impairment swelling Short Term Goal (STG) Keila will be independent with a swelling management program so that she no longer has pitting edema in her foot/ ankle. STG Duration MET Three Impairment strength Short Term Goal (STG) Keila will move through full AROM in eversion and inversion STG Duration NOT MET Smash Piecer Goal (LTG) Keila will be able to perform a double leg heel raise without UE support. LTG Duration NOT MET Two Impairment gait Short Term Goal (STG) Keila will ambulate with a FWW for 100' with a step through gait pattern. STG Duration MET Smash Piecer Goal (LTG) Keila will ambulate without assistive device for 5 minutes without an antalgic gait pattern. LTG Duration NOT MET One Impairment ROM Short Term Goal (STG) Keila will improve her PROM to neutral ankle dorsiflexion. STG Duration MET Smash Piecer Goal (LTG) Keila will improve her AROM to 10 degrees of ankle dorsiflexion. LTG Duration NOT MET Assessment Summary Assessment Keila was seen for 10 visits of physical therapy. She was called to schedule more appointments after getting an insurance extension, but did not follow up and has not been seen in almost 2 months. Therefore she is discharged at this time. Overall she did show good improvement in physical therapy, going from using a knee walker and non weightbearing to walking with SPC. Her chronic pain conditions did make her progress slower than standard, and she would have benefited from further physical therapy. Physical Therapy Plan Discharge Physical Therapy Discharge Reasons No Longer Attending PT
== END 2019-10-24 08:21 ==
LOC: PHYS 14:30
PROVIDERS: PCP Family Medicine; Visit Provider Orthopaedic Surgery Foot and Ankle Surgery
DX: M67.88 Other specified disorders of synovium and tendon, other site (principal); M25.872 Other specified joint disorders, left ankle and foot; R26.89 Other abnormalities of gait and mobility
CPT/HCPCS: 97010; 97110; 97116; 97140; 97162; 97530

== ENCOUNTER → 2020-03-02 10:28 | Outpatient (CLI) | payer OTHER, SELFPAY ==
[2020-03-02 11:46] LABS: Hemoglobin A1C% w Est Avg Glu 6.2 % (4.0-6.0)
[2020-03-02 12:06] LABS: BUN Creatinine Ratio 24.5 (6-22); Blood Urea Nitrogen 13 mg/dL (7-17); Calcium 9.9 mg/dL (8.4-10.2); Carbon Dioxide 29 mmol/L (22-32); Chloride 104 mmol/L (98-107); Estimated Glomerular Filt Rate > 60.0 mL/min (>60); Glucose 87 mg/dL (70-100); HEMOLYSIS < 15 (0-50); Potassium 4.7 mmol/L (3.4-5.1); Sodium 139 mmol/L (137-145)
== END ==
PROVIDERS: PCP Family Medicine; Referring Provider Family Medicine; Visit Provider Family Medicine
DX: Z01.812 Encounter for preprocedural laboratory examination (principal); E11.9 Type 2 diabetes mellitus without complications
CPT/HCPCS: 36415; 80048; 82565; 83036; 84520

== ENCOUNTER → 2020-03-02 12:08 | Outpatient (CLI) | payer OTHER, SELFPAY ==
--- NOTE | 2020-03-02 12:39 | DI.CT.S_ITS ---
PROCEDURE: CT PELVIS W CON INDICATIONS: Vaginal Bleeding TECHNIQUE: After the administration of intravenous contrast, 5 mm thick sections acquired from the iliac crests to the symphysis. 5 mm coronal and sagittal reformats were acquired. For radiation dose reduction, the following was used: automated exposure control, adjustment of mA and/or kV according to patient size. COMPARISON: [facility], CT, CT ABDOMEN PELVIS WITH CONTRAST, 04/15/2019, 14:43. FINDINGS: Image quality: Excellent. Peritoneum and bowel: Bowel loops demonstrate normal wall thickness and caliber. No free fluid or air. Genitourinary: Bladder wall thickness is normal. Uterus is absent consistent with hysterectomy. There is air in the vagina. Ovaries are unremarkable. A cause for vaginal bleeding is not identified on CT. Nodes and vessels: No iliac, pelvic, or inguinal adenopathy by size criteria. Iliac vessels demonstrate normal size and enhancement. Bones: No suspicious bony lesions. Miscellaneous: No inguinal hernias. IMPRESSION: 1. Hysterectomy. A cause for vaginal bleeding is not identified on CT. Recommend correlation with findings on physical exam. Dictated by: Carl Amin M.D. on 03/02/2020 at 13:54 Approved by: Carl Amin M.D. on 03/02/2020 at 13:59
== END ==
PROVIDERS: PCP Family Medicine; Referring Provider Family Medicine; Visit Provider Family Medicine
DX: Z01.812 Encounter for preprocedural laboratory examination (principal); N95.0 Postmenopausal bleeding; N93.9 Abnormal uterine and vaginal bleeding, unspecified; E11.9 Type 2 diabetes mellitus without complications; Z90.710 Acquired absence of both cervix and uterus
CPT/HCPCS: 36415; 72193; 80048; 82565; 83036; 84520; Q9967